=== PATIENT | male | born 1975 | race Caucasian/White ===

== ENCOUNTER 2019-07-07 07:43 | Inpatient (IN) | payer OTHER ==
[2019-07-07] MEDS ORDERED: SODIUM CHLORIDE 0.9% 500 ML 500 ML IV STA (07:49)
[2019-07-07] MEDS ORDERED: ONDANSETRON 4 MG/2 ML VIAL IVP STA (07:49)
[2019-07-07] MEDS ORDERED: SODIUM CHLORIDE 0.9% 1,000 ML IV STA (07:59)
--- NOTE | 2019-07-07 08:00 | ED ---
General Adult HPI - General Chief complaint: Abdominal Pain Stated complaint: Constipated, Abd Pain Time Seen by Provider: 07/07/19 07:49 Source: patient Mode of arrival: ambulatory - History of Present Illness Initial comments: Dictation was produced using [employer] dictation software. please excuse any grammatical, word or spelling errors. Chief Complaint: 43-year-old male presents to abdominal pain. History of Present Illness: A 43-year-old male. He hasa past medical history. States that he's been having abdominal pain for the last 3 days. Patient states that one week ago they returned back from [place]. Patient initially thought that his symptoms were secondary to constipation. He went and got joke-fjk-[id number] stool softeners. He states his symptoms improved slightly however still symptomatic. He does have constitutional symptoms at home. He localizes most of his pain to the periumbilical region. Sometimes worse in the right lower quadrant. He does report that sometimes his symptoms radiates to his rectum.. Patient has been having nausea however no vomiting. No diarrhea. Patient states that he is afraid to eat because of his pain. He has no history of abdominal surgery. The ROS documented in this emergency department record has been reviewed and confirmed by me. Those systems with pertinent positive or negative responses have been documented in the HPI. All other systems are other negative and/or noncontributory. PHYSICAL EXAM: General Impression: Alert and oriented x3, not in acute distress HEENT: Normocephalic atraumatic, extra-ocular movements intact, pupils equal and reactive to light bilaterally, mucous membranes moist. Cardiovascular: Heart regular rate and rhythm, S1&S2 audible, no murmurs, rubs or gallops Chest: Lungs clear to auscultation bilaterally, no rhonchi, no wheeze, no rales Abdomen: Tenderness to palpation over the suprapubic area and slightly worse in the right lower quadrant. Musculoskeletal: Pulses present and equal in all extremities, no peripheral edema Motor: no focal deficits noted Neurological: CN II-XII grossly intact, no focal motor or sensory deficits noted Skin: Intact with no visualized rashes Psych: Normal affect and mood ED course: 43-year-old male presents with chief complaint of abdominal pain. Vital signs upon arrival shows heart rate of 103, respiratory signs within acceptable limits. Laboratory evaluation obtained. Leukocytosis of 18.3, metabolic panel shows no acute findings. Computed tomography scan of the abdomen and pelvis shows medic al perforations with, located acute diverticulitis. Patient started on Zosyn. Patient be admitted. Discussed patient case with Dr. Menchaca is willing to accept patients care. Patient started on maintenance IV fluids. - Related Data Allergies Allergy/AdvReac Type Severity Reaction Status Date / Time No Known Allergies Allergy Verified 07/07/19 07:47 Review of Systems ROS Statement: Those systems with pertinent positive or pertinent negative responses have been documented in the HPI. ROS Other: All systems not noted in ROS Statement are negative. Past Medical History Past Medical History: No Reported History History of Any Multi-Drug Resistant Organisms: None Reported Past Surgical History: Orthopedic Surgery Past Psychological History: No Psychological Hx Reported Smoking Status: Never smoker Past Alcohol Use History: Occasional Past Drug Use History: None Reported Course Vital Signs 07/07/19 07:44 Temperature 99.7 F H Pulse Rate 103 H Respiratory 18 Rate Blood Pressure 140/82 O2 Sat by Pulse 97 Oximetry Medical Decision Making - Lab Data Result diagrams: 07/07/19 08:05 07/07/19 08:05 Lab Results 07/07/19 07/07/19 Range/Units 08:05 08:05 WBC 18.3 H (3.8-10.6) k/uL RBC 5.17 (4.30-5.90) m/uL Hgb 15.1 (13.0-17.5) gm/dL Hct 44.5 (39.0-53.0) % MCV 86.2 (80.0-100.0) fL MCH 29.2 (25.0-35.0) pg MCHC 33.9 (31.0-37.0) g/dL RDW 12.5 (11.5-15.5) % Plt Count 280 (150-450) k/uL Neutrophils % 88 % Lymphocytes % 6 % Monocytes % 5 % Eosinophils % 1 % Basophils % 0 % Neutrophils # 16.0 H (1.3-7.7) k/uL Lymphocytes # 1.1 (1.0-4.8) k/uL Monocytes # 0.9 (0-1.0) k/uL Eosinophils # 0.1 (0-0.7) k/uL Basophils # 0.0 (0-0.2) k/uL Sodium 137 (137-145) mmol/L Potassium 4.0 (3.5-5.1) mmol/L Chloride 105 (98-107) mmol/L Carbon Dioxide 21 L (22-30) mmol/L Anion Gap 11 mmol/L BUN 14 (9-20) mg/dL Creatinine 1.07 (0.66-1.25) mg/dL Est GFR (CKD-EPI)AfAm >90 (>60 ml/min/1.73 sqM) Est GFR (CKD-EPI)NonAf 85 (>60 ml/min/1.73 sqM) Glucose 125 H (74-99) mg/dL Calcium 9.3 (8.4-10.2) mg/dL Total Bilirubin 1.6 H (0.2-1.3) mg/dL AST 25 (17-59) U/L ALT 33 (21-72) U/L Alkaline Phosphatase 69 (38-126) U/L Total Protein 7.6 (6.3-8.2) g/dL Albumin 4.5 (3.5-5.0) g/dL Lipase 75 (23-300) U/L Disposition Clinical Impression: Diverticulitis Disposition: ADMITTED IP TO THIS [facility] Condition: Fair Referrals: Parker Kruse MD [Primary Care Provider] - 1-2 days Decision Time: 09:11
[2019-07-07 08:24] LABS: ALT 33 U/L (21-72); AST 25 U/L (17-59); African American GFR (CKD) >90 (>60 ml/min/1.73 sqM); Albumin 4.5 g/dL (3.5-5.0); Alkaline Phosphatase 69 U/L (38-126); Anion Gap 11 mmol/L; Blood Urea Nitrogen 14 mg/dL (9-20); Calcium 9.3 mg/dL (8.4-10.2); Carbon Dioxide 21 mmol/L (22-30); Chloride 105 mmol/L (98-107); Glucose 125 mg/dL (74-99); Non-African American GFR(CKD) 85 (>60 ml/min/1.73 sqM); Sodium 137 mmol/L (137-145); Total Bilirubin 1.6 mg/dL (0.2-1.3); Total Protein 7.6 g/dL (6.3-8.2)
[2019-07-07 08:25] LABS: Basophils % (A) 0 %; Eosinophils # (A) 0.1 k/uL (0-0.7); Eosinophils % (A) 1 %; HCT 44.5 % (39.0-53.0); HGB 15.1 gm/dL (13.0-17.5); Lymphocytes # (A) 1.1 k/uL (1.0-4.8); Lymphocytes % (A) 6 %; MCH 29.2 pg (25.0-35.0); MCHC 33.9 g/dL (31.0-37.0); MCV 86.2 fL (80.0-100.0); Mean Platelet Volume 6.1; Monocytes # (A) 0.9 k/uL (0-1.0); Monocytes % (A) 5 %; Neutrophils % (A) 88 %; Platelet Count 280 k/uL (150-450); RBC 5.17 m/uL (4.30-5.90); RDW 12.5 % (11.5-15.5); WBC 18.3 k/uL (3.8-10.6)
--- NOTE | 2019-07-07 08:56 | CT ---
EXAMINATION TYPE: CT abdomen pelvis w con DATE OF EXAM: 07/07/2019 COMPARISON: NONE HISTORY: 43 year-old male abdominal pain, Pelvic pain. TECHNIQUE: Contiguous axial scanning of the abdomen and pelvis following administration of 100 ml Iso rocky 300 IV contrast. Delayed images through the kidneys and coronal/sagittal reconstructions perform ed. CT DLP: 2144.3 mGycm Automated exposure control for dose reduction was used. FINDINGS: Heart normal size without pericardial effusion. Lung bases clear without pleural effusion. Liver mildly enlarged at 19.5 cm. No focal lesion or biliary ductal dilatation. Portal venous system is patent. Gallbladder distended upper limits of normal at 4.0 cm. No surrounding inflammation. Adrenal glands, left kidney, and spleen appear within normal limits. Small 1.4 cm lower pole right re nal cyst. Subtle focal hypodensity within the pancreatic head region, axial image 30 and coronal image 44 does not clearly persist on delayed kidney images. Precautionary follow up is recommended to reassess this region. No dilated small bowel. Normal appendix. Mild stool burden. Mid to distal sigmoid diverticulosis. The re is moderate circumferential wall thickening with moderate to severe surrounding inflammatory fat s tranding and mild pelvic free fluid. Small foci of extraluminal air are present adjacent to the site of greatest inflammation along the mid sigmoid, refer to coronal image 57 and axial image 72. No well -defined fluid collection is identified. No mesenteric or retroperitoneal lymphadenopathy. Circumferential bladder wall thickening. No pelvic lymphadenopathy. Bones: Mild degenerative changes of both hips. 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 Mild degenerative disc disease L4-L 5 and L5-S1. Mild facet arthropathy lower lumbar spine. IMPRESSION: 1. ACUTE SIGMOID DIVERTICULITIS WITH MODERATE TO SEVERE INFLAMMATION. THIS IS COMPLICATED BY A LOCALI ZED PERFORATION WITH ADJACENT SMALL FOCI OF EXTRALUMINAL AIR. NO ABSCESS FORMATION. MILD PELVIC FREE FLUID. 2. SUBTLE HYPODENSITY WITHIN THE PANCREATIC HEAD REGION MAY BE VOLUME AVERAGING EFFECTS. THIS DOES NO T CLEARLY PERSIST ON THE DELAYED KIDNEY IMAGES. PROGRESSION OR THREE-MONTH FOLLOW-UP CONTRAST ENHANCE D CT IS RECOMMENDED TO EXCLUDE A SUBTLE DEVELOPING SOLID PANCREATIC HEAD MASS. 3. CIRCUMFERENTIAL BLADDER WALL THICKENING COULD BE REACTIVE INFLAMMATION OR COULD REPRESENT A CONCUR RENT CYSTITIS.
[2019-07-07] MEDS ORDERED: PIPERACILLIN-TAZOBACTAM 3.375 GM in SODIUM CHLORIDE 0.9% 100 ML IVPB STA (09:03)
[2019-07-07] MEDS ORDERED: NALOXONE 0.4 MG/ML 1 ML VIAL IV PRN (09:08)
[2019-07-07] MEDS ORDERED: ONDANSETRON 4 MG/2 ML VIAL IVP PRN (09:08)
[2019-07-07] MEDS: SODIUM CHLORIDE 0.9% 1,000 ML IV SCH ×4 (09:45→21:02)
[2019-07-07] MEDS: MORPHINE SULFATE 2 MG/ML SYRINGE IV PRN ×2 (12:02→16:49)
[2019-07-07] MEDS: ACETAMINOPHEN TAB 325 MG TAB PO PRN ×2 (12:59→18:24)
[2019-07-07] MEDS ORDERED: KETOROLAC 30 MG/ML 1 ML VIAL IVP PRN (14:35)
--- NOTE | 2019-07-07 14:37 | P.GSHP ---
<Ginger Jc A - Last Filed: 07/07/19 14:35> History of Present Illness H&P Date: 07/07/19 Chief Complaint: Abdominal pain CHIEF COMPLAINT: Abdominal pain HISTORY OF PRESENT ILLNESS: 43-year-old male who presented to the emergency room with a chief complaint of abdominal pain. Patient reports he began having generalized abdominal pain on Thursday. He thought he may have been constipated. He reports taking [id number] stool softeners and laxatives since Thursday. He reports having daily bowel movements but states they have been significantly smaller than normal and he thinks there is some mucus in his stools. He reports feeling feverish at home over the last couple days. Reports nausea but denies diarrhea. He denies previous history of diverticulitis. Denies previous colonoscopy. Denies family history of diverticulitis. PAST MEDICAL HISTORY: See list. PAST SURGICAL HISTORY: See list. MEDICATIONS: See list. ALLERGIES: See list. SOCIAL HISTORY: No illicit drug use. REVIEW OF SYSTEMS: CONSTITUTIONAL: Reports feeling feverish at home. HEENT: Denies blurred vision, vision changes, or eye pain. Denies hemoptysis ENDOCRINE: Denies heat or cold intolerance. CARDIOVASCULAR: Denies chest pain or pressure. RESPIRATORY: No shortness of breath. GASTROINTESTINAL: See HPI for pertinent findings NEURO: Denies history of seizures. PSYCH: No depression or suicidal ideation HEMATOLOGIC: Denies bleeding disorders. LYMPHATIC: The patient denies any lumps and bumps around the neck. GENITOURINARY: Denies any blood in urine or increased urinary frequency. MUSCULOSKELETAL: Denies myalgias. Denies joint swelling. Denies decreased range of motion beyond patients baseline. SKIN: Denies pruitis. Denies rash. PHYSICAL EXAM: VITAL SIGNS: Reviewed GENERAL: Well-developed in no acute distress. HEENT: No sclera icterus. Extraocular movements grossly intact. Moist buccal mucosa. Head is atraumatic, normocephalic. Hears conversational speech. No nasal drainage. NECK: Supple without lymphadenopathy. CHEST: Non-labored respirations and equal bilateral excursions. CARDIOVASCULAR: Regular rate with regular rhythm. Palpable 2+ radial pulses. ABDOMEN: Soft. Nondistended. Tenderness upon palpation of left lower quadrant. No peritoneal signs. MUSCULOSKELETAL: No clubbing, cyanosis or edema. NEUROLOGIC: No focal or lateralizing signs. Cranial nerves II through XII grossly intact. PSYCH: Appropriate affect. Alert and oriented to person, place and time. SKIN: Well perfused. Good skin turgor. LABORATORY DATA: WBC 18.3. Hemoglobin 15.1. Platelet count 280. Sodium 137. Potassium 4.0. B UN 14. Creatinine 1.07. Bilirubin 1.6. AST 25. ALT 33. IMAGING: CT abdomen and pelvis: Acute sigmoid diverticulitis with moderate to severe inflammation. Complicated by a localized perforation with adjacent small foci of extraluminal air. No abscess formation. Mild pelvic free fluid. ASSESSMENT: 1. Abdominal pain 2. Acute sigmoid diverticulitis with localized perforation PLAN: 1. Bowel rest. Nothing by mouth except for ice chips. Continue IV fluids 2. Monitor WBC. Repeat in AM. Continue IV Zosyn 3. No immediate surgical intervention recommended at this time. Nurse practitioner note has been reviewed by physician. Signing provider agrees with the documented findings, assessment, and plan of care. Past Medical History Past Medical History: No Reported History History of Any Multi-Drug Resistant Organisms: None Reported Past Surgical History: Ear Surgery, Orthopedic Surgery Additional Past Surgical History / Comment(s): Bilateral myringotomy/tubes then L ear had titanium tube placed, L ankle ORIF Past Anesthesia/Blood Transfusion Reactions: No Reported Reaction Smoking Status: Former smoker - Past Family History Father Family Medical History: Congestive Heart Failure (CHF), Coronary Artery Disease (CAD), CVA/TIA, Diabetes Mellitus Additional Family Medical History / Comment(s): TIAs, coronary stents. Father from CHF at the age of 62 yrs. Mother Family Medical History: Renal Disease Additional Family Medical History / Comment(s): Mother has kidney problems and depression. Medications and Allergies Home Medications Medication Instructions Recorded Confirmed Type diphenhydrAMINE [Benadryl] 50 mg PO Q4H PRN 07/07/19 07/07/19 History Allergies Allergy/AdvReac Type Severity Reaction Status Date / Time No Known Allergies Allergy Verified 07/07/19 09:22 Surgical - Exam Vital Signs Temp Pulse Resp BP Pulse Ox 99.7 F H 103 H 18 140/82 97 07/07/19 07:44 07/07/19 07:44 07/07/19 07:44 07/07/19 07:44 07/07/19 07:44 Results - Labs 07/07/19 08:05 07/07/19 08:05 Abnormal Lab Results - Last 24 Hours (Table) 07/07/19 07/07/19 Range/Units 08:05 08:05 WBC 18.3 H (3.8-10.6) k/uL Neutrophils # 16.0 H (1.3-7.7) k/uL Carbon Dioxide 21 L (22-30) mmol/L Glucose 125 H (74-99) mg/dL Total Bilirubin 1.6 H (0.2-1.3) mg/dL Diabetes panel 07/07/19 Range/Units 08:05 Sodium 137 (137-145) mmol/L Potassium 4.0 (3.5-5.1) mmol/L Chloride 105 (98-107) mmol/L Carbon Dioxide 21 L (22-30) mmol/L BUN 14 (9-20) mg/dL Creatinine 1.07 (0.66-1.25) mg/dL Glucose 125 H (74-99) mg/dL Calcium 9.3 (8.4-10.2) mg/dL AST 25 (17-59) U/L ALT 33 (21-72) U/L Alkaline Phosphatase 69 (38-126) U/L Total Protein 7.6 (6.3-8.2) g/dL Albumin 4.5 (3.5-5.0) g/dL Calcium panel 07/07/19 Range/Units 08:05 Calcium 9.3 (8.4-10.2) mg/dL Albumin 4.5 (3.5-5.0) g/dL Pituitary panel 07/07/19 Range/Units 08:05 Sodium 137 (137-145) mmol/L Potassium 4.0 (3.5-5.1) mmol/L Chloride 105 (98-107) mmol/L Carbon Dioxide 21 L (22-30) mmol/L BUN 14 (9-20) mg/dL Creatinine 1.07 (0.66-1.25) mg/dL Glucose 125 H (74-99) mg/dL Calcium 9.3 (8.4-10.2) mg/dL Adrenal panel 07/07/19 Range/Units 08:05 Sodium 137 (137-145) mmol/L Potassium 4.0 (3.5-5.1) mmol/L Chloride 105 (98-107) mmol/L Carbon Dioxide 21 L (22-30) mmol/L BUN 14 (9-20) mg/dL Creatinine 1.07 (0.66-1.25) mg/dL Glucose 125 H (74-99) mg/dL Calcium 9.3 (8.4-10.2) mg/dL Total Bilirubin 1.6 H (0.2-1.3) mg/dL AST 25 (17-59) U/L ALT 33 (21-72) U/L Alkaline Phosphatase 69 (38-126) U/L Total Protein 7.6 (6.3-8.2) g/dL Albumin 4.5 (3.5-5.0) g/dL <Rach Soto - Last Filed: 07/07/19 21:02> History of Present Illness Patient seen and evaluated. CT of the abdomen and pelvis independently reviewed without free air. A localized perforation identified at the sigmoid colon. On exam, tenderness suprapubic. Patient reports that his abdominal pain has improved since yesterday. Recommend bowel rest. For fevers, add Toradol, scheduled Tylenol, Flagyl. Will reassess for start of diet tomorrow Surgical - Exam Vital Signs Temp Pulse Resp BP Pulse Ox 99.7 F H 103 H 18 140/82 97 07/07/19 07:44 07/07/19 07:44 07/07/19 07:44 07/07/19 07:44 07/07/19 07:44 Results - Labs 07/07/19 08:05 07/07/19 08:05 Abnormal Lab Results - Last 24 Hours (Table) 07/07/19 07/07/19 Range/Units 08:05 08:05 WBC 18.3 H (3.8-10.6) k/uL Neutrophils # 16.0 H (1.3-7.7) k/uL Carbon Dioxide 21 L (22-30) mmol/L Glucose 125 H (74-99) mg/dL Total Bilirubin 1.6 H (0.2-1.3) mg/dL Diabetes panel 07/07/19 Range/Units 08:05 Sodium 137 (137-145) mmol/L Potassium 4.0 (3.5-5.1) mmol/L Chloride 105 (98-107) mmol/L Carbon Dioxide 21 L (22-30) mmol/L BUN 14 (9-20) mg/dL Creatinine 1.07 (0.66-1.25) mg/dL Glucose 125 H (74-99) mg/dL Calcium 9.3 (8.4-10.2) mg/dL AST 25 (17-59) U/L ALT 33 (21-72) U/L Alkaline Phosphatase 69 (38-126) U/L Total Protein 7.6 (6.3-8.2) g/dL Albumin 4.5 (3.5-5.0) g/dL Calcium panel 07/07/19 Range/Units 08:05 Calcium 9.3 (8.4-10.2) mg/dL Albumin 4.5 (3.5-5.0) g/dL Pituitary panel 07/07/19 Range/Units 08:05 Sodium 137 (137-145) mmol/L Potassium 4.0 (3.5-5.1) mmol/L Chloride 105 (98-107) mmol/L Carbon Dioxide 21 L (22-30) mmol/L BUN 14 (9-20) mg/dL Creatinine 1.07 (0.66-1.25) mg/dL Glucose 125 H (74-99) mg/dL Calcium 9.3 (8.4-10.2) mg/dL Adrenal panel 07/07/19 Range/Units 08:05 Sodium 137 (137-145) mmol/L Potassium 4.0 (3.5-5.1) mmol/L Chloride 105 (98-107) mmol/L Carbon Dioxide 21 L (22-30) mmol/L BUN 14 (9-20) mg/dL Creatinine 1.07 (0.66-1.25) mg/dL Glucose 125 H (74-99) mg/dL Calcium 9.3 (8.4-10.2) mg/dL Total Bilirubin 1.6 H (0.2-1.3) mg/dL AST 25 (17-59) U/L ALT 33 (21-72) U/L Alkaline Phosphatase 69 (38-126) U/L Total Protein 7.6 (6.3-8.2) g/dL Albumin 4.5 (3.5-5.0) g/dL
[2019-07-07] MEDS: PIPERACILLIN-TAZOBACTAM 3.375 GM in SODIUM CHLORIDE 0.9% 100 ML IVPB SCH (15:17)
[2019-07-07] MEDS: HEPARIN SODIUM,PORCINE 5,000 UNIT/ML 1 ML VIAL SQ SCH (20:03)
[2019-07-07] MEDS: KETOROLAC 30 MG/ML 1 ML VIAL IVP SCH (21:19)
[2019-07-07] MEDS: metroNIDAZOLE-NS PMX 500 MG in SALINE 1 100ML.BAG IVPB SCH (23:24)
[2019-07-08] MEDS ORDERED: KETOROLAC 30 MG/ML 1 ML VIAL IVP SCH
[2019-07-08] MEDS: ACETAMINOPHEN IV (For NPO) 1,000 MG in EMPTY BAG 1 BAG IVPB SCH ×4 (01:01→17:04)
[2019-07-08] MEDS: PIPERACILLIN-TAZOBACTAM 3.375 GM in SODIUM CHLORIDE 0.9% 100 ML IVPB SCH ×4 (01:02→23:48)
[2019-07-08] MEDS: KETOROLAC 30 MG/ML 1 ML VIAL IVP SCH ×4 (02:59→21:35)
[2019-07-08] MEDS: SODIUM CHLORIDE 0.9% 1,000 ML IV SCH ×3 (02:59→19:10)
[2019-07-08] MEDS: metroNIDAZOLE-NS PMX 500 MG in SALINE 1 100ML.BAG IVPB SCH ×4 (06:14→23:47)
[2019-07-08 06:51] LABS: Basophils % (A) 0 %; Eosinophils # (A) 0.1 k/uL (0-0.7); Eosinophils % (A) 1 %; HCT 37.3 % (39.0-53.0); HGB 12.5 gm/dL (13.0-17.5); Lymphocytes # (A) 1.3 k/uL (1.0-4.8); Lymphocytes % (A) 10 %; MCH 29.1 pg (25.0-35.0); MCHC 33.6 g/dL (31.0-37.0); MCV 86.7 fL (80.0-100.0); Mean Platelet Volume 6.3; Monocytes # (A) 0.6 k/uL (0-1.0); Monocytes % (A) 5 %; Neutrophils # (A) 10.8 k/uL (1.3-7.7); Neutrophils % (A) 83 %; Platelet Count 215 k/uL (150-450); RBC 4.31 m/uL (4.30-5.90); RDW 12.6 % (11.5-15.5)
[2019-07-08] MEDS: PANTOPRAZOLE 40 MG/10 ML VIAL IVP SCH (08:10)
[2019-07-08] MEDS: HEPARIN SODIUM,PORCINE 5,000 UNIT/ML 1 ML VIAL SQ SCH ×2 (08:10→21:35)
--- NOTE | 2019-07-08 11:44 | P.PN ---
<Ginger Jc A - Last Filed: 07/08/19 11:39> Subjective Progress Note Date: 07/08/19 CHIEF COMPLAINT: Abdominal pain HISTORY OF PRESENT ILLNESS: Patient examined at the bedside. He reports improvement in his abdominal pain. Tolerating ice chips and popsicles. Denies nausea or vomiting. Reports passing flatus and having a small bowel movement this morning. PHYSICAL EXAM: VITAL SIGNS: Reviewed GENERAL: Well-developed in no acute distress. HEENT: No sclera icterus. Extraocular movements grossly intact. Moist buccal mucosa. Head is atraumatic, normocephalic. Hears conversational speech. No nasal drainage. NECK: Supple without lymphadenopathy. CHEST: Non-labored respirations and equal bilateral excursions. CARDIOVASCULAR: Regular rate with regular rhythm. Palpable 2+ radial pulses. ABDOMEN: Soft. Nondistended. Minimal tenderness upon palpation of left lower quadrant. No peritoneal signs. MUSCULOSKELETAL: No clubbing, cyanosis or edema. NEUROLOGIC: No focal or lateralizing signs. Cranial nerves II through XII grossly intact. PSYCH: Appropriate affect. Alert and oriented to person, place and time. SKIN: Well perfused. Good skin turgor. ASSESSMENT: 1. Abdominal pain 2. Acute sigmoid diverticulitis with localized perforation PLAN: 1. Begin clear liquid diet 2. Monitor WBC. Repeat in AM. Continue IV Zosyn 3. No immediate surgical intervention recommended at this time. Nurse practitioner note has been reviewed by physician. Signing provider agrees with the documented findings, assessment, and plan of care. Objective - Vital Signs Vital signs: Vital Signs Temp 98.9 F 07/08/19 04:45 Pulse 82 07/08/19 04:45 Resp 16 07/08/19 04:45 BP 107/69 07/08/19 04:45 Pulse Ox 96 07/08/19 04:45 Intake & Output 07/07/19 07/08/19 07/08/19 18:59 06:59 18:59 Intake Total 1060 Balance 1060 Weight 124.738 kg Intake: IV 1060 Piperacillin-Tazobactam 3 100 .375 gm In Sodium Chloride 0.9% 100 ml @ 25 mls/hr IVPB Q8HR ERI Rx# :[id number] Sodium Chloride 0.9% 1, 960 000 ml @ 120 mls/hr IV . Q8H20M ERI Rx#:[id number] Other: # Voids 1 3 - Labs CBC & Chem 7: 07/08/19 06:18 07/07/19 08:05 Labs: Abnormal Lab Results - Last 24 Hours (Table) 07/08/19 Range/Units 06:18 WBC 13.0 H (3.8-10.6) k/uL Hgb 12.5 L (13.0-17.5) gm/dL Hct 37.3 L (39.0-53.0) % Neutrophils # 10.8 H (1.3-7.7) k/uL Microbiology - Last 24 Hours (Table) 07/07/19 09:25 Blood Culture - Preliminary Blood No Growth after 24 hours <Rach Soto - Last Filed: 07/11/19 15:10> Subjective As above. We'll need at least 2 weeks course of oral antibiotics pending improvement of white blood cell count Objective - Vital Signs Vital signs: Vital Signs Temp 99.1 F 07/11/19 07:00 Pulse 83 07/11/19 07:00 Resp 16 07/11/19 07:00 BP 134/73 07/11/19 07:00 Pulse Ox 97 07/11/19 07:00 Intake & Output 07/10/19 07/11/19 07/11/19 18:59 06:59 18:59 Intake Total 1160 920 Balance 1160 920 Intake: IV 200 920 Piperacillin-Tazobactam 3 100 100 .375 gm In Sodium Chloride 0.9% 100 ml @ 25 mls/hr IVPB Q8HR ERI Rx# :[id number] Sodium Chloride 0.9% 1, 720 000 ml @ 120 mls/hr IV . Q8H20M ERI Rx#:[id number] metroNIDAZOLE-NS PMX 500 100 100 mg In Saline 1 100ml.bag @ 100 mls/hr IVPB Q6HR ERI Rx#:[id number] Intake, IV Titration 960 Amount Sodium Chloride 0.9% 1, 960 000 ml @ 120 mls/hr IV . Q8H20M ERI Rx#:[id number] Other: Voiding Method Toilet # Voids 4 2 # Bowel Movements 4 1 - Labs CBC & Chem 7: 07/10/19 06:32 07/07/19 08:05 Labs: Microbiology - Last 24 Hours (Table) 07/07/19 09:25 Blood Culture - Preliminary Blood No Growth after 96 hours 07/09/19 23:38 Blood Culture - Preliminary Blood No Growth after 24 hours
[2019-07-09] MEDS: KETOROLAC 30 MG/ML 1 ML VIAL IVP SCH ×4 (03:10→20:01)
[2019-07-09] MEDS: SODIUM CHLORIDE 0.9% 1,000 ML IV SCH ×3 (03:11→20:04)
[2019-07-09] MEDS: metroNIDAZOLE-NS PMX 500 MG in SALINE 1 100ML.BAG IVPB SCH ×4 (05:31→22:55)
[2019-07-09 06:32] LABS: Basophils % (A) 0 %; Eosinophils # (A) 0.2 k/uL (0-0.7); Eosinophils % (A) 2 %; HCT 36.5 % (39.0-53.0); HGB 11.8 gm/dL (13.0-17.5); Lymphocytes # (A) 1.2 k/uL (1.0-4.8); Lymphocytes % (A) 13 %; MCH 28.3 pg (25.0-35.0); MCHC 32.2 g/dL (31.0-37.0); Mean Platelet Volume 7.4; Monocytes # (A) 0.6 k/uL (0-1.0); Monocytes % (A) 6 %; Neutrophils # (A) 6.8 k/uL (1.3-7.7); Neutrophils % (A) 77 %; Platelet Count 213 k/uL (150-450); RBC 4.15 m/uL (4.30-5.90); RDW 12.6 % (11.5-15.5); WBC 8.9 k/uL (3.8-10.6)
[2019-07-09] MEDS: PANTOPRAZOLE 40 MG/10 ML VIAL IVP SCH (07:15)
[2019-07-09] MEDS: HEPARIN SODIUM,PORCINE 5,000 UNIT/ML 1 ML VIAL SQ SCH ×2 (07:15→20:02)
[2019-07-09] MEDS: PIPERACILLIN-TAZOBACTAM 3.375 GM in SODIUM CHLORIDE 0.9% 100 ML IVPB SCH ×3 (07:15→23:28)
--- NOTE | 2019-07-09 16:15 | P.CONS ---
History of Present Illness - Reason for Consult Consult date: 07/09/19 Abdominal pain - History of Present Illness This is a 43-year-old male presented to the emergency room with a chief complai nt of abdominal pain. Patient reports he began having generalized abdominal pain since Thursday after eating his Snickers bar. He states he has had an episode like this about one year ago after eating popcorn. He has not had a colonoscopy. He thought he may have been constipated. He reports taking ztha-zjw-ktyswxb stool softeners and laxatives since Thursday. He reports having daily bowel movements but states they have been significantly smaller than normal and he thinks there is some mucus in his stools. He reports feeling feverish at home over the last couple days. Reports nausea but denies diarrhea. He denies previous history of diverticulitis. Denies previous colonoscopy. Denies family history of diverticulitis. CAT scan of the abdomen and pelvis revealed acute sigmoid diverticulitis with moderate to severe inflammation. Complicated by localized perforation with adjacent small foci of extraluminal air. No abscess formation. Mild pelvic free fluid. Patient was admitted under the care of and family have requested us to follow for medical management. The patient was initially on bowel rest but has been started on clear liquid diet and tolerating. Review of Systems Constitutional: Reports chills, Reports fatigue, Reports fever, Reports poor appetite, Denies anorexia, Denies weakness, Denies weight loss Eyes: denies blurred vision, denies pain Ears, nose, mouth and throat: Denies headache, Denies nasal congestion, Denies nasal discharge, Denies sore throat Cardiovascular: Denies chest pain, Denies decreased exercise tolerance, Denies dyspnea on exertion, Denies edema, Denies shortness of breath, Denies syncope Respiratory: Denies cough, Denies cough with sputum, Denies dyspnea Gastrointestinal: Reports abdominal pain, Reports constipation, Reports loss of appetite, Denies diarrhea, Denies nausea, Denies vomiting Genitourinary: Denies dysuria, Denies urinary retention Musculoskeletal: Denies muscle weakness, Denies myalgias Integumentary: Denies pruritus, Denies rash, Denies wounds Neurological: Denies change in mentation, Denies change in speech, Denies numbness, Denies weakness Psychiatric: Denies anxiety, Denies depression Endocrine: Denies fatigue, Denies weight change Past Medical History Past Medical History: No Reported History Additional Past Medical History / Comment(s): Diverticulitis History of Any Multi-Drug Resistant Organisms: None Reported Past Surgical History: Ear Surgery, Orthopedic Surgery Additional Past Surgical History / Comment(s): Bilateral myringotomy/tubes then L ear had titanium tube placed, L ankle ORIF Past Anesthesia/Blood Transfusion Reactions: No Reported Reaction Smoking Status: Former smoker Additional Past Alcohol Use History / Comment(s): He is not active smoker. He drinks alcohol occasionally. Lives at home with his and 3 children. He works at [employer]. - Past Family History Father Family Medical History: Congestive Heart Failure (CHF), Coronary Artery Disease (CAD), CVA/TIA, Diabetes Mellitus Additional Family Medical History / Comment(s): TIAs, coronary stents. Father from CHF at the age of 62 yrs. Mother Family Medical History: Renal Disease Additional Family Medical History / Comment(s): Mother has kidney problems and depression. Brother(s) Additional Family Medical History / Comment(s): Patient has 1 brother and 1 sister with no major medical problems. Patient has 3 children with no major medical problems. Medications and Allergies Home Medications Medication Instructions Recorded Confirmed Type diphenhydrAMINE [Benadryl] 50 mg PO Q4H PRN 07/07/19 07/07/19 History Ciprofloxacin HCl [Cipro] 500 mg PO Q12HR #28 tablet 07/08/19 Rx metroNIDAZOLE [Flagyl] 500 mg PO TID #42 tab 07/08/19 Rx Allergies Allergy/AdvReac Type Severity Reaction Status Date / Time No Known Allergies Allergy Verified 07/07/19 09:22 Physical Exam Vitals: Vital Signs Temp Pulse Resp BP Pulse Ox 07/09/19 04:34 98.4 F 70 14 120/81 95 07/08/19 21:23 98.1 F 73 16 120/77 98 07/08/19 13:05 97.4 F L 79 16 127/83 99 Intake and Output 07/08/19 07/09/19 07/09/19 22:59 06:59 14:59 Intake Total 540 Output Total 1 Balance 540 -1 Intake: Oral 540 Output: Urine 1 Other: Voiding Method Toilet # Voids 1 1 Gen: This is an obese 43-year-old male. He is resting bed appears to be in no acute distress. HEENT: Head is atraumatic, normocephalic. Pupils equal, round. Sclerae is anicteric. NECK: Supple. No JVD. No lymphadenopathy. No thyromegaly. LUNGS: Clear to auscultation. No wheezes or rhonchi. No intercostal retracti ons. HEART: Regular rate and rhythm. No murmur. ABDOMEN: Soft. Bowel sounds are present. No masses. Mild left lower quadrant tenderness. EXTREMITIES: No pedal edema. No calf tenderness. NEUROLOGICAL: Patient is awake, alert and oriented x3. Cranial nerves 2 through 12 are grossly intact. Results CBC & Chem 7: 07/09/19 05:47 07/07/19 08:05 Labs: Abnormal Lab Results - Last 24 Hours (Table) 07/09/19 Range/Units 05:47 RBC 4.15 L (4.30-5.90) m/uL Hgb 11.8 L (13.0-17.5) gm/dL Hct 36.5 L (39.0-53.0) % Microbiology - Last 24 Hours (Table) 07/07/19 09:25 Blood Culture - Preliminary Blood No Growth after 48 hours Assessment and Plan Plan: 1. Acute sigmoid diverticulitis with localized perforation. Continue clear liq uid diet, IV Zosyn and Flagyl. Surgery does not have any plan for surgical intervention at this time. 2. Sepsis secondary to acute sigmoid diverticulitis with fevers and leukocytosis. Continue as in #1. 3. DVT prophylaxis. SCDs and RYAN hose. 4. GI prophylaxis. Protonix. Discharge plan: home Impression and plan of care have been directed as dictated by the signing physician. Ladi Loza nurse practitioner acting as scribe for signing physician.
[2019-07-09] MEDS: MORPHINE SULFATE 2 MG/ML SYRINGE IV PRN (17:58)
[2019-07-09] MEDS: ACETAMINOPHEN TAB 325 MG TAB PO PRN (23:28)
[2019-07-10] MEDS: KETOROLAC 30 MG/ML 1 ML VIAL IVP SCH ×4 (04:16→22:52)
[2019-07-10] MEDS: SODIUM CHLORIDE 0.9% 1,000 ML IV SCH ×3 (04:18→22:59)
[2019-07-10] MEDS: metroNIDAZOLE-NS PMX 500 MG in SALINE 1 100ML.BAG IVPB SCH ×3 (05:54→17:56)
[2019-07-10 07:04] LABS: Basophils % (A) 0 %; Eosinophils % (A) 1 %; HGB 11.8 gm/dL (13.0-17.5); Lymphocytes # (A) 0.8 k/uL (1.0-4.8); Lymphocytes % (A) 9 %; MCH 28.4 pg (25.0-35.0); MCHC 32.7 g/dL (31.0-37.0); MCV 86.7 fL (80.0-100.0); Mean Platelet Volume 7.2; Monocytes # (A) 0.4 k/uL (0-1.0); Monocytes % (A) 5 %; Neutrophils # (A) 7.5 k/uL (1.3-7.7); Neutrophils % (A) 84 %; Platelet Count 249 k/uL (150-450); RBC 4.16 m/uL (4.30-5.90); RDW 12.6 % (11.5-15.5); WBC 8.9 k/uL (3.8-10.6)
[2019-07-10] MEDS: HEPARIN SODIUM,PORCINE 5,000 UNIT/ML 1 ML VIAL SQ SCH ×2 (07:46→22:51)
[2019-07-10] MEDS: PIPERACILLIN-TAZOBACTAM 3.375 GM in SODIUM CHLORIDE 0.9% 100 ML IVPB SCH ×2 (07:46→15:43)
[2019-07-10] MEDS: PANTOPRAZOLE 40 MG/10 ML VIAL IVP SCH (07:47)
--- NOTE | 2019-07-10 11:45 | P.PN ---
Subjective Progress Note Date: 07/10/19 This is a 43-year-old male presented to the emergency room with a chief complaint of abdominal pain. Patient reports he began having generalized abdominal pain since Thursday after eating his Snickers bar. He states he has had an episode like this about one year ago after eating popcorn. He has not had a colonoscopy. He thought he may have been constipated. He reports taking qvst-lta-vruclkr stool softeners and laxatives since Thursday. He reports having daily bowel movements but states they have been significantly smaller than normal and he thinks there is some mucus in his stools. He reports feeling feverish at home over the last couple days. Reports nausea but denies diarrhea. He denies previous history of diverticulitis. Denies previous colonoscopy. Denies family history of diverticulitis. CAT scan of the abdomen and pelvis revealed acute sigmoid diverticulitis with moderate to severe inflammation. Complicated by localized perforation with adjacent small foci of extraluminal a ir. No abscess formation. Mild pelvic free fluid. Patient was admitted under the care of and family have requested us to follow for medical management. The patient was initially on bowel rest but has been started on clear liquid diet and tolerating. 07/10: Received a call last evening the patient developed fever 102.3, blood cultures were obtained. Patient states that last night he had an attack of abdominal pain around 5 PM and subsequently resolved. He did have a bowel move ment. He is on a clear liquid diet. He complains of generalized soreness to the abdomen today. WBC is 8.9, hemoglobin 11.8. Patient is continued on Flagyl and Zosyn. Review of Systems Constitutional: Reports chills, Reports fatigue, Reports fever, Reports poor appetite, Denies anorexia, Denies weakness, Denies weight loss Eyes: denies blurred vision, denies pain Ears, nose, mouth and throat: Denies headache, Denies nasal congestion, Denies nasal discharge, Denies sore throat Cardiovascular: Denies chest pain, Denies decreased exercise tolerance, Denies dyspnea on exertion, Denies edema, Denies shortness of breath, Denies syncope Respiratory: Denies cough, Denies cough with sputum, Denies dyspnea Gastrointestinal: Reports abdominal pain attack last evening, Reports constipation, Reports loss of appetite, Denies diarrhea, Denies nausea, Denies vomiting Genitourinary: Denies dysuria, Denies urinary retention Musculoskeletal: Denies muscle weakness, Denies myalgias Integumentary: Denies pruritus, Denies rash, Denies wounds Neurological: Denies change in mentation, Denies change in speech, Denies numbness, Denies weakness Psychiatric: Denies anxiety, Denies depression Endocrine: Denies fatigue, Denies weight change Objective - Vital Signs Vital signs: Vital Signs Temp 100.2 F H 07/10/19 05:24 Pulse 94 07/10/19 05:24 Resp 18 07/10/19 05:24 BP 115/71 07/10/19 05:24 Pulse Ox 95 07/10/19 05:24 Intake & Output 07/09/19 07/10/19 07/10/19 18:59 06:59 18:59 Output Total 30 Balance -30 Output: Stool 30 Other: Voiding Method Toilet Toilet # Voids 4 1 # Bowel Movements 4 1 - Exam Gen: This is an obese 43-year-old male. He is resting bed appears to be in no acute distress. HEENT: Head is atraumatic, normocephalic. Pupils equal, round. Sclerae is anicteric. NECK: Supple. No JVD. No lymphadenopathy. No thyromegaly. LUNGS: Clear to auscultation. No wheezes or rhonchi. No intercostal retractions. HEART: Regular rate and rhythm. No murmur. ABDOMEN: Soft. Bowel sounds are present. No masses. Mild generalized abdominal tenderness. EXTREMITIES: No pedal edema. No calf tenderness. Dorsalis pedis +2 bilaterally. NEUROLOGICAL: Patient is awake, alert and oriented x3. Cranial nerves 2 through 12 are grossly intact. - Labs CBC & Chem 7: 07/10/19 06:32 07/07/19 08:05 Labs: Abnormal Lab Results - Last 24 Hours (Table) 07/10/19 Range/Units 06:32 RBC 4.16 L (4.30-5.90) m/uL Hgb 11.8 L (13.0-17.5) gm/dL Hct 36.0 L (39.0-53.0) % Lymphocytes # 0.8 L (1.0-4.8) k/uL Microbiology - Last 24 Hours (Table) 07/07/19 09:25 Blood Culture - Preliminary Blood No Growth after 48 hours Assessment and Plan Plan: 1. Acute sigmoid diverticulitis with localized perforation. Continue clear liquid diet, IV Zosyn and Flagyl. Surgery does not have any plan for surgical intervention at this time. 2. Sepsis secondary to acute sigmoid diverticulitis with fevers and leukocytosis. Continue as in #1. Repeat blood cultures ordered during febrile episode. Initial blood culture obtained on July 07 showing no growth at 72 hours. 3. DVT prophylaxis. SCDs and RYAN hose. 4. GI prophylaxis. Protonix. Discharge plan: home Impression and plan of care have been directed as dictated by the signing physician. Ladi Loza nurse practitioner acting as scribe for signing physician.
[2019-07-11] MEDS: metroNIDAZOLE-NS PMX 500 MG in SALINE 1 100ML.BAG IVPB SCH ×3 (00:51→11:56)
[2019-07-11] MEDS: PIPERACILLIN-TAZOBACTAM 3.375 GM in SODIUM CHLORIDE 0.9% 100 ML IVPB SCH ×2 (00:51→08:01)
[2019-07-11] MEDS: KETOROLAC 30 MG/ML 1 ML VIAL IVP SCH ×2 (04:02→08:02)
[2019-07-11 05:04] VITALS: RESP 16
[2019-07-11] MEDS: SODIUM CHLORIDE 0.9% 1,000 ML IV SCH ×2 (05:13→13:18)
[2019-07-11] MEDS: HEPARIN SODIUM,PORCINE 5,000 UNIT/ML 1 ML VIAL SQ SCH (08:01)
[2019-07-11] MEDS: PANTOPRAZOLE 40 MG/10 ML VIAL IVP SCH (08:01)
[2019-07-11 08:14] VITALS: BP 134/73; PULSE 83; TEMP 99.1
--- NOTE | 2019-07-11 11:12 | P.DS ---
<Ginger Jc Doug - Last Filed: 07/11/19 11:09> Providers Expected date of discharge: 07/11/19 Hospital Course: 43-year-old male who presented to the emergency room with a chief complaint of abdominal pain. Patient reports he began having generalized abdominal pain on Thursday. He thought he may have been constipated. He reports taking zzic-zqu-atejvqd stool softeners and laxatives since Thursday. He reports having daily bowel movements but states they have been significantly smaller than normal and he thinks there is some mucus in his stools. He reports feeling feverish at home over the last couple days. Reports nausea but denies vomiting. He denies previous history of diverticulitis. Denies previous colonoscopy. Denies family history of diverticulitis. Patient was admitted to the hospital. He was made NPO. He received IV antibiotics. His WBC has been trending downward. The patients pain has resolved. He was started on a clear liquid diet and slowly advanced. Infectious disease consult was requested for antibiotic recommendations at discharge. He is stable for discharge home today. The patient was treated medically and did not require surgical intervention during his hospitalization. He is to remain on a full liquid/soft diet for 3 additional days. He is to follow up with Dr. Soto outpatient. Please see EMR for further hospital course details. ASSESSMENT: 1. Abdominal pain 2. Acute sigmoid diverticulitis with localized perforation Nurse practitioner note has been reviewed by physician. Signing provider agrees with the documented findings, assessment, and plan of care. Patient Condition at Discharge: Stable Plan - Discharge Summary Discharge Rx Participant: No New Discharge Prescriptions: New Ciprofloxacin HCl [Cipro] 500 mg PO Q12HR #28 tablet metroNIDAZOLE [Flagyl] 500 mg PO TID #42 tab No Action diphenhydrAMINE [Benadryl] 50 mg PO Q4H PRN PRN Reason: Itching Discharge Medication List diphenhydrAMINE [Benadryl] 50 mg PO Q4H PRN 07/07/19 [History] Ciprofloxacin HCl [Cipro] 500 mg PO Q12HR #28 tablet 07/08/19 [Rx] metroNIDAZOLE [Flagyl] 500 mg PO TID #42 tab 07/08/19 [Rx] Follow up Appointment(s)/Referral(s): Matt Foss MD [Medical Doctor] - 1 Week (office to call you with appt. time and date. please call the office to go over your insurance card.) Rach Soto MD [STAFF PHYSICIAN] - 07/19/19 11:40 am Patient Instructions/Handouts: Diverticulitis (DC), Diverticulitis Diet (DC), Full Liquid Diet (DC) Activity/Diet/Wound Care/Special Instructions: Continue full liquid/soft diet for 3 days after discharge Discharge Disposition: HOME SELF-CARE <Rach Soto - Last Filed: 07/11/19 15:11> Providers Date of admission: 07/07/19 09:08 Attending physician: Rach Soto Consults: 07/09/19 12:10 Consult Physician Routine Consulting Provider: Matt Foss Consult Reason/Comments: med management, family request Do you want consulting provider notified?: Yes 07/11/19 06:48 Consult Physician Routine Consulting Provider: Vickie Scales Consult Reason/Comments: Antibiotic management Do you want consulting provider notified?: Yes 07/11/19 08:20 Consult Physician Routine Consulting Provider: Vickie Scales Consult Reason/Comments: fevers Do you want consulting provider notified?: Yes Primary care physician: Pedro Kruse - Discharge Diagnosis(es) (1) Sepsis Status: Acute (2) Diverticulitis Status: Acute Hospital Course: Prior to patient discharge, infectious disease consultation was obtained for management of oral antibiotics.
--- NOTE | 2019-07-11 13:10 | P.PN ---
Subjective Progress Note Date: 07/11/19 This is a 43-year-old male presented to the emergency room with a chief complaint of abdominal pain. Patient reports he began having generalized abdominal pain since Thursday after eating his Snickers bar. He states he has had an episode like this about one year ago after eating popcorn. He has not had a colonoscopy. He thought he may have been constipated. He reports taking fsiw-keo-dwficto stool softeners and laxatives since Thursday. He reports having daily bowel movements but states they have been significantly smaller than normal and he thinks there is some mucus in his stools. He reports feeling feverish at home over the last couple days. Reports nausea but denies diarrhea. He denies previous history of diverticulitis. Denies previous colonoscopy. Denies family history of diverticulitis. CAT scan of the abdomen and pelvis revealed acute sigmoid diverticulitis with moderate to severe inflammation. Complicated by localized perforation with adjacent small foci of extraluminal a ir. No abscess formation. Mild pelvic free fluid. Patient was admitted under the care of and family have requested us to follow for medical management. The patient was initially on bowel rest but has been started on clear liquid diet and tolerating. 07/10: Received a call last evening the patient developed fever 102.3, blood cultures were obtained. Patient states that last night he had an attack of abdominal pain around 5 PM and subsequently resolved. He did have a bowel move ment. He is on a clear liquid diet. He complains of generalized soreness to the abdomen today. WBC is 8.9, hemoglobin 11.8. Patient is continued on Flagyl and Zosyn. 07/11: Patient denies having any abdominal pain. He states he is passing gas. He denies any nausea vomiting, no lightheadedness. Patient has been afebrile for greater than 24 hours, blood pressure 134/73, heart rate 83, pulse ox 97% on room air. Blood cultures are showing no growth at 96 hours and repeat blood culture no growth at 24 hours His diet is to be advanced and patient is been cleared by surgeon for discharge home today. Review of Systems Constitutional: Denies fatigue, denies fever, denies poor appetite, Denies anorexia, Denies weakness, Denies weight loss Eyes: denies blurred vision, denies pain Ears, nose, mouth and throat: Denies headache, Denies nasal congestion, Denies nasal discharge, Denies sore throat Cardiovascular: Denies chest pain, Denies decreased exercise tolerance, Denies dyspnea on exertion, Denies edema, Denies shortness of breath, Denies syncope Respiratory: Denies cough, Denies cough with sputum, Denies dyspnea Gastrointestinal: Denies abdominal pain, denies constipation, denies loss of appetite, Denies diarrhea, Denies nausea, Denies vomiting Genitourinary: Denies dysuria, Denies urinary retention Musculoskeletal: Denies muscle weakness, Denies myalgias Integumentary: Denies pruritus, Denies rash, Denies wounds Neurological: Denies change in mentation, Denies change in speech, Denies numbness, Denies weakness Psychiatric: Denies anxiety, Denies depression Endocrine: Denies fatigue, Denies weight change Objective - Vital Signs Vital signs: Vital Signs Temp 99.1 F 07/11/19 07:00 Pulse 83 07/11/19 07:00 Resp 16 07/11/19 07:00 BP 134/73 07/11/19 07:00 Pulse Ox 97 07/11/19 07:00 Intake & Output 07/10/19 07/11/19 07/11/19 18:59 06:59 18:59 Intake Total 1160 Balance 1160 Intake: IV 200 Piperacillin-Tazobactam 3 100 .375 gm In Sodium Chloride 0.9% 100 ml @ 25 mls/hr IVPB Q8HR ERI Rx# :[id number] metroNIDAZOLE-NS PMX 500 100 mg In Saline 1 100ml.bag @ 100 mls/hr IVPB Q6HR ERI Rx#:[id number] Intake, IV Titration 960 Amount Sodium Chloride 0.9% 1, 960 000 ml @ 120 mls/hr IV . Q8H20M ERI Rx#:[id number] Other: Voiding Method Toilet # Voids 4 2 # Bowel Movements 4 1 - Exam Gen: This is an obese 43-year-old male. He is resting bed appears to be in no acute distress. HEENT: Head is atraumatic, normocephalic. Pupils equal, round. Sclerae is anicteric. NECK: Supple. No JVD. No lymphadenopathy. No thyromegaly. LUNGS: Clear to auscultation. No wheezes or rhonchi. No intercostal retractions. HEART: Regular rate and rhythm. No murmur. ABDOMEN: Soft. Bowel sounds are present. No masses. Minimal left lower quadrant tenderness. EXTREMITIES: No pedal edema. No calf tenderness. Dorsalis pedis +2 bilaterally. NEUROLOGICAL: Patient is awake, alert and oriented x3. Cranial nerves 2 through 12 are grossly intact. - Labs CBC & Chem 7: 07/10/19 06:32 07/07/19 08:05 Labs: Microbiology - Last 24 Hours (Table) 07/09/19 23:38 Blood Culture - Preliminary Blood No Growth after 24 hours 07/07/19 09:25 Blood Culture - Preliminary Blood No Growth after 72 hours Assessment and Plan Plan: 1. Acute sigmoid diverticulitis with localized perforation. Continue clear liquid diet, IV Zosyn and Flagyl. Surgery does not have any plan for surgical intervention at this time. Diet advanced to full liquid to continue at home. 2. Sepsis secondary to acute sigmoid diverticulitis with fevers and leukocytosis. Continue as in #1. Repeat blood cultures ordered during febrile episode. Initial blood culture obtained on July 07 showing no growth at 72 hours. 3. DVT prophylaxis. SCDs and RYAN hose. 4. GI prophylaxis. Protonix. Discharge plan: home today Impression and plan of care have been directed as dictated by the signing physician. Ladi Loza nurse practitioner acting as scribe for signing physician.
== END 2019-07-11 14:05 | disposition home or self-care (01) | DRG 872 ==
LOC: EC 07:43 → 4MS4W 09:08
PROVIDERS: ADMIT Surgery Plastic and Reconstructive Surgery; ATTEND Surgery Plastic and Reconstructive Surgery
DX: A41.9 Sepsis, unspecified organism (principal); K57.20 Diverticulitis of large intestine with perforation and abscess without bleeding; Z81.8 Family history of other mental and behavioral disorders; Z82.49 Family history of ischemic heart disease and other diseases of the circulatory system; Z83.3 Family history of diabetes mellitus; Z87.891 Personal history of nicotine dependence
CPT/HCPCS: 36415; 74177; 80053; 83690; 85025; 87040; 96361; 96374; 99285

== ENCOUNTER 2020-04-26 07:01 | Inpatient (IN) | payer OTHER ==
[2020-04-24 13:19] VITALS: BMI 35.9
[2020-04-26] MEDS: LACTATED RINGERS 1,000 ML IV SCH ×3 (07:39→23:42)
[2020-04-26] MEDS ORDERED: LIDOCAINE 1% (10MG/ML) FOR IV START INTRADERMA ONE (07:39)
[2020-04-26] MEDS ORDERED: PROPOFOL 10 MG/ML 20 ML VIAL IV ONE (07:47)
[2020-04-26] MEDS ORDERED: LIDOCAINE 1% INJ 10MG/ML (20 ML MDV) ONE (07:47)
--- NOTE | 2020-04-26 07:50 | P.GSHP ---
History of Present Illness H&P Date: 04/26/20 CHIEF COMPLAINT: Abdominal pain with diverticulitis HISTORY OF PRESENT ILLNESS: The patient is a 44-year-old male who presents with abdominal pain including diarrhea as well as diverticulitis in the past Lower endoscopy was offered for further evaluation and management. PAST MEDICAL HISTORY: Please see list. PAST SURGICAL HISTORY: Please see list. MEDICATIONS: Please see list. ALLERGIES: Please see list. SOCIAL HISTORY: No illicit drug use FAMILY HISTORY: No reports of Crohn disease or ulcerative colitis. REVIEW OF ORGAN SYSTEMS: CONSTITUTIONAL: No reports of fevers or chills. No reports of weight loss despite prior attempts. GI: Has diarrhea including change in bowel habits. PHYSICAL EXAM: VITAL SIGNS: Stable GENERAL: Well-developed pleasant male in no acute distress. HEENT: No scleral icterus. Extraocular movements grossly intact. Moist buccal mucosa. NECK: Supple without lymphadenopathy. CHEST: Unlabored respirations. Equal bilateral excursions. CARDIOVASCULAR: Regular rate and rhythm. Distal 2+ pulses. ABDOMEN: Soft, nontender, nondistended. MUSCULOSKELETAL: No clubbing, cyanosis, or edema. ASSESSMENT: 1. History of diverticulitis 2. Change in bowel habits. PLAN: 1. Recommend proceeding with a lower endoscopy Past Medical History Past Medical History: No Reported History Additional Past Medical History / Comment(s): Diverticulitis diagnosed with perforation -recent flare up within past 3 days History of Any Multi-Drug Resistant Organisms: None Reported Past Surgical History: Ear Surgery, Orthopedic Surgery Additional Past Surgical History / Comment(s): Bilateral myringotomy/tubes then L ear had titanium tube placed, L ankle ORIF Past Anesthesia/Blood Transfusion Reactions: No Reported Reaction Smoking Status: Former smoker - Past Family History Father Family Medical History: Congestive Heart Failure (CHF), Coronary Artery Disease (CAD), CVA/TIA, Diabetes Mellitus Additional Family Medical History / Comment(s): TIAs, coronary stents. Father from CHF at the age of 62 yrs. Mother Family Medical History: Renal Disease Additional Family Medical History / Comment(s): Mother has kidney problems and depression. Brother(s) Additional Family Medical History / Comment(s): Patient has 1 brother and 1 sister with no major medical problems. Patient has 3 children with no major medical problems. Medications and Allergies Home Medications Medication Instructions Recorded Confirmed Type diphenhydrAMINE [Benadryl] 50 mg PO DAILY PRN 04/24/20 04/26/20 History Allergies Allergy/AdvReac Type Severity Reaction Status Date / Time No Known Allergies Allergy Verified 04/26/20 07:28 Surgical - Exam Vital Signs Temp Pulse Resp BP Pulse Ox 97.9 F 78 18 143/79 99 04/26/20 07:32 04/26/20 07:32 04/26/20 07:32 04/26/20 07:32 04/26/20 07:32
--- NOTE | 2020-04-26 08:12 | P.PCN ---
Date of Procedure: 04/26/20 Description of Procedure: PREOPERATIVE DIAGNOSIS: History of diverticulitis Change in bowel habits POSTOPERATIVE DIAGNOSIS: Obstructing sigmoid mass History of diverticulitis Change in bowel habits OPERATION: Incomplete colonoscopy/Flexible sigmoidoscopy to the sigmoid colon Incomplete colonoscopy/Flexible sigmoidoscopy with Joanna ink tatto at 20 cm from the anal verge. Incomplete colonoscopy/Flexible sigmoidoscopy with snare polypectomy of obstructing sigmoid lesion. SURGEON: Rach Soto MD. ANESTHESIA: MAC. INDICATIONS: The patient is a 44-year-old male who presents with history of diverticulitis and change in bowel habits. Benefits and risks were described and informed consent was obtained. DESCRIPTION OF PROCEDURE: The patient had undergone bowel prep. He had been brought into the endoscopy room and laid in the left lateral decubitus position. After adequate intravenous sedation, the rectum was examined with 2% lidocaine jelly. No external hemorrhoids were encountered. The rectal tone was within normal limits. No lesions were palpated in the rectal vault. The prostate was smooth without nodularity. An Olympus colonoscope was advanced along the rectum to a circumferential polyploid obstructing lesion at the sigmoid colon at 20 cm to 25 cm from the anal verge. The lesion was circumferential, polypoid with inflammatory changes. The scope could not advance beyond the obstructing lesion. A snare polypectomy was performed to obtain specimen. Additionally, Joanna ink tattoo was placed 4-mL just inferior and along the borders of the neoplasm to plan for resection. No inflamed internal hemorrhoids were identified. The colon was desufflated. The colonoscope was removed. FINDINGS: [place]ronchik preparation quality scale 3 (1-5) No external prolapsed hemorrhoids. Scope advanced to the sigmoid colon. Circumferential sigmoid neoplasm with obstruction at 20 to 25 cm from the anal verge. RECOMMENDATIONS: 1. Will need CT of the abdomen and pelvis are metastatic workup. 2. Recommend colectomy for an obstructing sigmoid lesion 3. Recommend CBC, CMP, CEA level
[2020-04-26] MEDS ORDERED: IOPAMIDOL CONTRAST (ORAL USE) VIAL PO PRN (08:22)
[2020-04-26] MEDS ORDERED: ONDANSETRON 4 MG/2 ML VIAL IVP PRN (08:31)
[2020-04-26] MEDS ORDERED: METOCLOPRAMIDE 5 MG/ML 2 ML VIAL IVP PRN (08:31)
[2020-04-26] MEDS ORDERED: NALOXONE 0.4 MG/ML 1 ML VIAL IV PRN (08:31)
[2020-04-26] MEDS ORDERED: HYDROmorphone 0.5 MG/0.5 ML SYRINGE IVP PRN (08:31)
[2020-04-26] MEDS ORDERED: POLYETHYLENE GLYCOL LYTES SOLN 4,000 ML SOLN.RECON PO ONE (08:33)
[2020-04-26] MEDS ORDERED: Antibiotics per Pharmacy 1 EACH MISC MISCELLANE PRN (08:33)
--- NOTE | 2020-04-26 08:38 | P.PN ---
Progress Note - Text Progress Note Date: 04/26/20 Following his procedure, patient has a obstructing lesion of the sigmoid colon. Patient then gives additional history that his symptoms has been ongoing since last year including chronic diarrhea and abdominal pain. Patient was fearful of coming in due to pandemic although being told since June of last year to have a colonoscopy prior to the end of the year. Patient also reports recent diverticulitis attack 1-2 weeks ago. With findings of obstructing tumor of the sigmoid colon, admission with CT workup advised to plan for surgical resection. Patient prep was subpar. Will need additional prep. Colectomy advised.
[2020-04-26 09:52] LABS: Basophils # (A) 0.1 k/uL (0-0.2); Basophils % (A) 1 %; Eosinophils # (A) 0.1 k/uL (0-0.7); Eosinophils % (A) 1 %; HCT 40.2 % (39.0-53.0); HGB 13.3 gm/dL (13.0-17.5); Lymphocytes # (A) 1.7 k/uL (1.0-4.8); Lymphocytes % (A) 19 %; MCH 27.9 pg (25.0-35.0); MCHC 32.9 g/dL (31.0-37.0); MCV 84.8 fL (80.0-100.0); Mean Platelet Volume 7.7; Monocytes # (A) 0.5 k/uL (0-1.0); Monocytes % (A) 6 %; Neutrophils # (A) 6.2 k/uL (1.3-7.7); Neutrophils % (A) 71 %; Platelet Count 366 k/uL (150-450); RBC 4.74 m/uL (4.30-5.90); RDW 12.4 % (11.5-15.5); WBC 8.7 k/uL (3.8-10.6)
[2020-04-26 10:12] LABS: ALT 19 U/L (4-49); AST 17 U/L (17-59); African American GFR (CKD) >90 (>60 ml/min/1.73 sqM); Alkaline Phosphatase 75 U/L (38-126); Anion Gap 8 mmol/L; Blood Urea Nitrogen 9 mg/dL (9-20); Calcium 9.2 mg/dL (8.4-10.2); Carbon Dioxide 25 mmol/L (22-30); Chloride 107 mmol/L (98-107); Glucose 102 mg/dL (74-99); Non-African American GFR(CKD) >90 (>60 ml/min/1.73 sqM); Phosphorus 3.3 mg/dL (2.5-4.5); Potassium 4.1 mmol/L (3.5-5.1); Sodium 140 mmol/L (137-145); Total Bilirubin 0.4 mg/dL (0.2-1.3); Total Protein 6.7 g/dL (6.3-8.2)
--- NOTE | 2020-04-26 11:46 | CT ---
EXAMINATION TYPE: CT abdomen pelvis w con DATE OF EXAM: 04/26/2020 COMPARISON: 07/07/2019 HISTORY: Sigmoid colon obstruction/mass CT DLP: 1682 mGycm CONTRAST: CT scan of the abdomen and pelvis is performed with Oral Contrast and with IV Contrast, patient injec alvin with 100 mL of Isovue 300. FINDINGS: LUNG BASES-: No visible nodule. No infiltrate. LIVER/GB: No calcified gallstones. No space occupying hepatic lesion. Biliary tree is of normal ca liber. PANCREAS: No inflammation. No distinct mass. SPLEEN: No splenic enlargement. No lesion seen. ADRENALS: No nodule. No thickening. KIDNEYS/BLADDER: No hydronephrosis. No nephrolithiasis. No distinct renal mass. Urinary bladder g rossly unremarkable. BOWEL: Normal appendix. Moderate wall thickening with surrounding inflammatory change involving the s igmoid colon compatible with sigmoid diverticulitis. No evidence for abscess. No free air seen. GENITAL ORGANS: No gross abnormality. LYMPH NODES: No greater than 1cm abdominal or pelvic lymph nodes are appreciated. AORTA: No significant abnormality. OSSEOUS STRUCTURES: No significant abnormality is seen. OTHER: No significant additional abnormality is seen. IMPRESSION: 1. Acute sigmoid diverticulitis without evidence for perforation or drainable abscess at this time.
[2020-04-26] MEDS: PANTOPRAZOLE 40 MG/10 ML VIAL IV SCH (14:08)
[2020-04-26] MEDS: metroNIDAZOLE 500 MG TAB PO SCH ×3 (14:48→23:12)
[2020-04-26] MEDS: NEOMYCIN 500 MG TAB PO SCH ×3 (15:14→23:55)
[2020-04-26 16:13] LABS: Carcinoembryonic Antigen 0.8 ng/mL (0.0-4.9)
[2020-04-26 16:20] LABS: % Iron Saturation 11.53 (15.00-50.00); Iron 34 ug/dL (65-175); Total Iron Binding Capacity 295 ug/dL (228-460)
[2020-04-26 16:26] LABS: Alpha Fetoprotein, Tumor Mkr <2.5 ng/mL (0.0-7.9)
[2020-04-26] MEDS ORDERED: TEMAZEPAM 15 MG CAP PO ONE (21:00)
[2020-04-26] MEDS ORDERED: NEOMYCIN 500 MG TAB PO SCH (23:00)
[2020-04-27] MEDS ORDERED: metroNIDAZOLE-NS PMX 500 MG in SALINE 1 100ML.BAG IVPB ONE (05:00)
[2020-04-27] MEDS ORDERED: MIDAZOLAM 2 MG/2 ML VIAL IV PRN (06:00)
[2020-04-27] MEDS ORDERED: fentaNYL (PF) 50 MCG/ML 2 ML AMP IVP PRN (06:00)
[2020-04-27] MEDS ORDERED: LIDOCAINE 1% (10MG/ML) FOR IV START INTRADERMA PRN (06:00)
[2020-04-27] MEDS ORDERED: DEXAMETHASONE SOD PHOSPHATE 10 MG/ML 1 ML VIAL IV ONE (06:00)
[2020-04-27] MEDS ORDERED: HYDROmorphone 0.5 MG/0.5 ML SYRINGE IVP PRN (06:00)
[2020-04-27] MEDS ORDERED: ONDANSETRON 4 MG/2 ML VIAL IVP ONE (06:00)
[2020-04-27] MEDS: HEPARIN SODIUM,PORCINE 5,000 UNIT/ML 1 ML VIAL SQ ONE ×2 (07:59→13:54)
[2020-04-27] MEDS ORDERED: ALVIMOPAN 12 MG CAPSULE PO ONE (08:33)
[2020-04-27] MEDS ORDERED: MELOXICAM 7.5 MG TAB PO ONE (08:33)
[2020-04-27] MEDS ORDERED: ACETAMINOPHEN TAB 500 MG TAB PO ONE (08:33)
[2020-04-27] MEDS ORDERED: IV FLUID CONTINUATION 1,000 ML IV ONE (13:21)
--- NOTE | 2020-04-27 13:56 | P.HPADDEND ---
H&P Addendum H&P Addendum Date: 04/27/20 Patient seen and evaluated. Computed tomography scan findings reviewed demonstrating severity of diverticulitis. Blood work demonstrates no elevation of tumor markers. Robotic sigmoid colectomy including possibility of open technique an ostomy bag were described. Patient completed his prep. We'll pr oceed with robotic sigmoid colectomy. Patient and family wish to proceed.
[2020-04-27] MEDS ORDERED: LIDOCAINE 1% INJ 10MG/ML (20 ML MDV) ONE (14:10)
[2020-04-27] MEDS ORDERED: fentaNYL (PF) 50 MCG/ML 2 ML AMP ONE (14:10)
[2020-04-27] MEDS ORDERED: ROPIVACAINE 5 MG/ML 30 ML VIAL ONE (14:10)
[2020-04-27] MEDS ORDERED: SUCCINYLCHOLINE CHLORIDE 100 MG/5 ML SYR IV ONE (14:10)
[2020-04-27] MEDS ORDERED: PROPOFOL 10 MG/ML 20 ML VIAL IV ONE (14:10)
[2020-04-27] MEDS ORDERED: MIDAZOLAM 2 MG/2 ML VIAL ONE (14:10)
[2020-04-27] MEDS ORDERED: GLYCOPYRROLATE 0.2 MG/ML 2 ML VIAL ONE (14:10)
[2020-04-27] MEDS ORDERED: ROCURONIUM BROMIDE 10 MG/ML 5 ML VIAL IV ONE (14:10)
[2020-04-27] MEDS ORDERED: NEOSTIGMINE 1 MG/ML 10 ML VIAL ONE (14:10)
[2020-04-27] MEDS ORDERED: HYDROmorphone (PF) 1 MG/ML ONE (14:10)
[2020-04-27] MEDS ORDERED: DEXAMETHASONE SOD PHOSPHATE 4 MG/ML 1 ML VIAL ONE (14:10)
[2020-04-27] MEDS ORDERED: BUPIVACAINE (PF) 0.25% 30 ML VIAL SQ ONE ×2 (14:39→14:52)
[2020-04-27] MEDS: PANTOPRAZOLE 40 MG/10 ML VIAL IV SCH (15:34)
--- NOTE | 2020-04-27 15:39 | P.ANPRN ---
Procedure Note - Anesthesia - Nerve Block Performed Bilateral Transversus Abdominis Single Time Out Performed: Yes Date of Procedure: 04/27/20 Procedure Start Time: 13:44 Procedure Stop Time: 13:56 Location of Patient: PreOp Indication: Requested by Surgeon Specifically requested for management of pain by DrYue: Rach Soto Sedation Type: Sedate with meaningful contact maintained Preparation: Sterile Prep Position: Supine Needle Types: Pajunk Needle Gauge: 20 Ultrasound used to visualize needle placement: Yes Ultrasound used to observe medication spread: Yes Injectate: 0.5% Ropivacaine (see comment for volume) (20 ml plus Dexamethasone 4 mg per side) Blood Aspirated: No Pain Paresthesia on Injection Noted: No Resistance on Injection: Normal Image Stored and Saved: Yes Events: Uneventful and Well Tolerated
[2020-04-27] MEDS ORDERED: LACTATED RINGERS 1,000 ML IV ONE ×3 (15:47→20:30)
[2020-04-27] MEDS ORDERED: BENZOCAINE/MENTHOL LOZENG 1 EACH LOZENGE MUCOUS MEM PRN (21:32)
--- NOTE | 2020-04-27 21:32 | P.OP ---
Date of Procedure: 04/27/20 Description of Procedure: SURGEON: CR WHITT MD PREOPERATIVE DIAGNOSES: 1. Sigmoid diverticulitis with large bowel obstruction 2. Sigmoid mass 3. Gastroesophageal reflux disease 4. Morbid obesity due to excess calories, BMI 36.0 POSTOPERATIVE DIAGNOSES: 1. Sigmoid diverticulitis with large bowel obstruction with phlegmon 2. Sigmoid mass 3. Gastroesophageal reflux disease 4. Morbid obesity due to excess calories, BMI 36.0 5. Pelvic abscess, diverticulitis 6. Severe pelvic peritoneal adhesions OPERATION: 1. Robotic-assisted daVinci Xi laparoscopic sigmoid colectomy with low anterior resection using powered Ethicon stapler 29 mm ILS 2. Robotic-assisted daVinci Xi laparoscopic extensive lysis of adhesions over 2 hours 3. Intraoperative colonoscopy for flexible sigmoidoscopy 4. Placement of round #19 drain right pelvis Anesthesia: GETA, regional, local Estimated Blood Loss (ml): 100 Pathology: other (Sigmoid colectomy, anastomosis) Condition: stable Disposition: floor COMPLICATIONS: None. Operative Findings: 1. Phlegmon in pelvis with sigmoid colon attached to bladder posteriorly with extensive lysis of adhesions over 2 hours performed without injury to bladder 2. EEA anastomosis 29 mm powered Ethicon stapler for low anterior resection 3. Intact anastomosis confirmed by a leak test and endoscopic images obtained 4. No tension or torsion along the anastomosis 5. Tattoo area resection at sigmoid colon. INDICATIONS: The patient is a 44-year-old male who presents with sigmoid diverticulitis with large bowel obstruction found per colonoscopy. Benefits and risks of surgical intervention was described in detail including infection, injury to the ureter, colostomy creation, possibility for additional surgery was discussed at length. Informed consent was obtained. All questions of the patient and family were answered. DESCRIPTION: Earlier the patient had undergone a bowel prep using the enhanced colon recovery program. The patient was transferred to the operating room and placed supine. After general induction, the abdomen was prepped and draped in standard sterile fashion. Ioban was placed along the abdomen to minimize any contamination of skin floor. A Xie catheter was placed. After a timeout protocol was performed, attention was then brought to the left upper quadrant whereby a 0 degree 5 mm laparoscopic trocar entry was performed. The abdominal cavity was entered and insufflated to 15 mmHg pressure, which was tolerated well. Diagnostic laparoscopy confirmed adherent sigmoid colon to the dome of the bladder with phlegmon. The liver surface was unremarkable. The small bowel was unremarkable. Next a robotic 12-mm trocar was placed along the right lateral abdominal wall 20 cm superior from the pelvis. Two 8 mm ports were placed along the upper abdomen. Ports were placed 8 to 10 cm apart from each other including 15-20 cm away from the target anatomy of the left pelvis. The 5-mm port was exchanged for an 8 mm robotic port at the left upper quadrant. The robot was docked along the right side. The robotic system was docked and primed as described. The patient was positioned in steep Trendelenburg position,16-degrees. Instruments were interchanged by the senior assistant manager including scissors, needle fire truck driver, robot suction irrigation, robotic stapler and vessel sealer. The robot stapler was prepared along the right lateral abdominal wall. Next, attention was brought to the sigmoid colon A stay suture using 3-0 silk was placed along the anterior serosa of the sigmoid colon. The sigmoid mesentery was mobilized using a vessel sealer whereby the descending colon was marked and tagged. Using robot stapler 60 mm black and green loads, the proximal redundant sigmoid colon was divided. The mesentery of the sigmoid colon was mobilized towards the pelvic brim and sacral promontory using a vessel sealer. Dense phlegmon of the sigmoid colon was found with drainage of a 5-mL abscess along the posterior wall of the bladder. Extensive lysis of adhesions over 2 hrs was performed using vessel sealer, hook cautery without injury to the bladder. Circumferential dissection was performed to the sacral promontory for resection. Next, the sigmoid colon was divided using the robotic stapler 60 mm black and green loads used to resect at the proximal rectum distal to the tattooed area of the sigmoid mass. The rest of the sigmoid colon mesentery was mobilized using vessel sealer. Additionally, the sigmoid colon was mobilized onto the colon to avoid injury to the ureters. I re-scrubbed into the case. The robotic arms were undocked. A 29-mm anvil was positioned after placing a suture along the anvil information security specialist through the left upper abdomen. The descending resected colon was opened for placement of the anvil. The colotomy was closed using black staple load. The shaft of the anvil was exited via the staple line and the anvil information security specialist was removed. I went to the foot of the bed to place the ILS stapler via the rectum. The anvil and stapler were mated for 1 minute. The doughnuts were intact. An intra-operative colonoscope was used for a flexible sigmoidoscopy. A leak test was performed and negative. The robot was undocked. Via the left upper quadrant port, the sigmoid colon was removed using a 15-mm Endo Catch bag. All sponges, needles were removed from the abdominal cavity. The left upper quadrant incision was widened to 4-cm. No contamination had occurred throughout the case. The fascial defect was oversewn using 0 Vicryl and a Jhonatan Murphy. A round #19 drain was placed anterior to the anastomosis along the right pelvis and exited via the right lateral abdominal wall. A 2-0 nylon stitch was placed. Next all pneumoperitoneum was evacuated from the abdominal cavity. The 8-mm trocar sites were reapproximated using 4-0 Monocryl in an interrupted subcuticular fashion. Local anesthetic was infiltrated to all wounds for postop analgesia. All incisions were also cleansed with diluted hydrogen peroxide. An Optifoam surgical dressing was placed over the epigastrium of the colon extraction site and drain site. A suction bulb was placed along the tubing. Liquid glue was applied to the rest of the skin incisions. The patient had tolerated the procedure well. The patient was extubated successfully. Intraoperative photos were reviewed with the patient's family who were overall pleased with the level of care. The patient was transferred to the postanesthesia care unit in stable condition.
[2020-04-27] MEDS: LACTATED RINGERS 1,000 ML IV SCH (21:54)
[2020-04-27] MEDS ORDERED: SODIUM CHLORIDE IV SCH ×2 (22:00)
[2020-04-27] MEDS ORDERED: KCL IV SCH ×2 (22:00)
[2020-04-27] MEDS ORDERED: NACL IV SCH ×2 (22:00)
[2020-04-27] MEDS: GABAPENTIN 300 MG CAP PO SCH (22:34)
[2020-04-27] MEDS: HYDROmorphone 1 MG/ML 1 ML SYRINGE IVP PRN (22:35)
[2020-04-27] MEDS: 0.9% NACL WITH KCL 20 MEQ/L 1,000 ML IV SCH (23:44)
[2020-04-27] MEDS: ACETAMINOPHEN TAB 500 MG TAB PO SCH (23:44)
[2020-04-27] MEDS: KETOROLAC 15 MG/ML 1 ML VIAL IVP SCH (23:45)
[2020-04-27] MEDS: PIPERACILLIN-TAZOBACTAM 3.375 GM in SODIUM CHLORIDE 0.9% 100 ML IVPB SCH (23:50)
[2020-04-28] MEDS: HYDROmorphone 1 MG/ML 1 ML SYRINGE IVP PRN (03:13)
[2020-04-28] MEDS: ACETAMINOPHEN TAB 500 MG TAB PO SCH ×4 (06:01→23:14)
[2020-04-28] MEDS: LACTATED RINGERS 1,000 ML IV SCH (06:02)
[2020-04-28] MEDS: KETOROLAC 15 MG/ML 1 ML VIAL IVP SCH ×4 (06:02→23:13)
[2020-04-28 07:27] LABS: Basophils % (A) 0 %; Eosinophils % (A) 0 %; HCT 38.5 % (39.0-53.0); HGB 12.4 gm/dL (13.0-17.5); Lymphocytes # (A) 1.4 k/uL (1.0-4.8); Lymphocytes % (A) 9 %; MCH 27.9 pg (25.0-35.0); MCHC 32.3 g/dL (31.0-37.0); MCV 86.3 fL (80.0-100.0); Mean Platelet Volume 7.4; Monocytes # (A) 0.8 k/uL (0-1.0); Monocytes % (A) 5 %; Neutrophils # (A) 13.8 k/uL (1.3-7.7); Neutrophils % (A) 86 %; Platelet Count 369 k/uL (150-450); RBC 4.46 m/uL (4.30-5.90); RDW 12.6 % (11.5-15.5); WBC 16.1 k/uL (3.8-10.6)
[2020-04-28 07:39] LABS: African American GFR (CKD) >90 (>60 ml/min/1.73 sqM); Anion Gap 7 mmol/L; Blood Urea Nitrogen 12 mg/dL (9-20); Calcium 8.4 mg/dL (8.4-10.2); Carbon Dioxide 24 mmol/L (22-30); Chloride 106 mmol/L (98-107); Glucose 100 mg/dL (74-99); Non-African American GFR(CKD) >90 (>60 ml/min/1.73 sqM); Potassium 4.6 mmol/L (3.5-5.1); Sodium 137 mmol/L (137-145)
[2020-04-28] MEDS: FAMOTIDINE 20 MG/2 ML VIAL IV SCH ×2 (08:27→20:54)
[2020-04-28] MEDS: ALVIMOPAN 12 MG CAPSULE PO SCH ×2 (08:28→20:54)
[2020-04-28] MEDS: PANTOPRAZOLE 40 MG/10 ML VIAL IV SCH (08:28)
[2020-04-28] MEDS: PIPERACILLIN-TAZOBACTAM 3.375 GM in SODIUM CHLORIDE 0.9% 100 ML IVPB SCH ×3 (08:28→23:13)
[2020-04-28] MEDS: TAMSULOSIN 0.4 MG CAP.ER.24H PO SCH (08:28)
[2020-04-28] MEDS: GABAPENTIN 300 MG CAP PO SCH ×3 (08:28→20:54)
--- NOTE | 2020-04-28 09:30 | P.PN ---
Subjective Progress Note Date: 04/28/20 Principal diagnosis: Diverticulitis Patient doing fairly well today after robotic resection yesterday. White blood cell count 16.1, hemoglobin 12.4. Drain remains serosanguineous. Xie catheter being removed this morning. Tolerating clears. Pain is minimal. Objective - Vital Signs Vital signs: Vital Signs Temp 98.2 F 04/28/20 07:00 Pulse 86 04/28/20 07:00 Resp 16 04/28/20 07:00 BP 131/82 04/28/20 07:00 Pulse Ox 98 04/28/20 08:35 Intake & Output 04/27/20 04/28/20 04/28/20 18:59 06:59 18:59 Intake Total 1750 350 Output Total 1355 Balance 1750 -1005 Intake: IV 1750 350 Output: Drainage 80 Right Abdomen 80 Urine 1175 Estimated Blood Loss 100 Other: Voiding Method Toilet Indwelling Catheter # Voids 3 - Exam Abdomen: Soft, nondistended, incisions clean and dry, dressing in place, draining serosanguineous - Labs CBC & Chem 7: 04/28/20 06:51 04/28/20 06:51 Labs: Abnormal Lab Results - Last 24 Hours (Table) 04/28/20 04/28/20 Range/Units 06:51 06:51 WBC 16.1 H (3.8-10.6) k/uL Hgb 12.4 L (13.0-17.5) gm/dL Hct 38.5 L (39.0-53.0) % Neutrophils # 13.8 H (1.3-7.7) k/uL Glucose 100 H (74-99) mg/dL Assessment and Plan (1) Diverticulitis Narrative/Plan: Overall patient doing fairly well. Continue clear liquids. Remove Xie catheter. Ambulate. Await return bowel function. Current Visit: Yes Status: Acute Code(s): K57.92 - DVTRCLI OF INTEST, PART UNSP, W/O PERF OR ABSCESS W/O BLEED SNOMED Code(s): 826365013
[2020-04-28] MEDS: 0.9% NACL WITH KCL 20 MEQ/L 1,000 ML IV SCH ×3 (11:02→20:54)
--- NOTE | 2020-04-28 12:29 | P.CONS ---
History of Present Illness - Reason for Consult Consult date: 04/28/20 - History of Present Illness This is a 44-year-old gentleman patient of Dr. Foss with past medical history of diverticulosis. Patient was diagnosed with diverticulitis with perforation and underwent a robotic low anterior resection, possible sigmoidoscopy, placement of a drain to the right pelvis, and extensive lysis of adhesions. At this time patient is resting comfortably in bed. Patient has minimal pain that is controlled with pain analgesics. Patient denies any fever or chills. Patient has a history of smoking 15 years ago. Patient states that last June he was diagnosed with diverticulosis. He continued to have some discomfort and pain however it wasn't until 3 days ago that he had increased pain to the site. Patient was supposed to have a workup and an endoscopy performed however due to the pandemic he was unable to follow through with testing. Review Of Systems: Constitutional: No fever, no chills, no night sweats. No weight change. No weakness, fatigue or lethargy. No daytime sleepiness. EENT: No headache. No blurred vision or double vision, no loss of vision. No loss of Hearing, no ringing in the ears, no dizziness. No nasal drainage or congestion. No epistaxis. No sore throat. Lungs: No shortness of breath, cough, no sputum production. No wheezing. Cardiovascular: No chest pain, no lower extremity edema. No palpitations. No paroxysmal nocturnal dyspnea. No orthopnea. No lightheadedness or dizziness. No syncopal episodes. Abdominal: Reports abdominal discomfort. No nausea, vomiting. no diarrhea. No constipation. No bloody or tarry stools. no loss of appetite. Genitourinary: No dysuria, increased frequency, urgency. No urinary retention. Musculoskeletal: No myalgias. No muscle weakness, no gait dysfunction, no frequent falls. No back pain. No neck pain. Integumentary: No wounds, no lesions. No rash or pruritus. No unusual bruising. No change in hair or nails. Neurologic: No aphasia. No facial droop. No change in mentation. No head injury. No headache. No paralysis. No paresthesia. Psychiatric: No depression. No anxiety. No mood swings. Endocrine: No abnormal blood sugars. No weight change. No excessive sweating or thirst. Physical exam: General Appearance: Alert, cooperative, no distress, appears stated age. Neck HEENT: Supple, no lymphadenopathy, no thyroid enlargement, no carotid bruits. Lungs: Clear to auscultation without crackles or wheezes no rhonchi, no deformity. Chest Wall: Chest wall normal expansion with deep inspiration no tenderness and no deformity was found on exam, no costochondral pain or discomfort. Heart: Regular rate and rhythm, S1, S2 normal, no murmur, rub or gallop. Back: Symmetric, no curvature, ROM normal, no CVA tenderness. Abdomen: Abdominal binder in place, dressing to the right upper quadrant, ANAHI drain intact with 30 ML's of serosanguineous drainage, Soft, tender, no rebound or rigidity, no hepatosplenomegaly. Positive bowel sounds Extremities: Extremities normal, atraumatic, no cyanosis or edema. Pulses: 2+ and symmetric. Skin: Skin color, texture, tugor normal, no rashes or lesions. Neurologic: Alert oriented x3 cranial nerves II through XII intact, no motor deficit, no abnormal balance or gait Assessment/plan: 1. Diverticulitis with robotic low anterior resection postop day 1. Continue with pain management. Diet to advance as per surgery. In doing catheters to removed. Ambulate. Continue utilizing incentive spirometer. 2. Obesity 3. BPH. Flomax 0.4 mg by mouth 4. GI prophylaxis. Pepcid 20 mg IV twice a day, 5. DVT prophylaxis. Pneumatic compression sleeves Thank you for the consultation. We will continue to assist the patient's medical needs while the patient is in the hospital. Impression and plan of care have been directed as dictated by the signing physician. Elba Handy nurse practitioner acting as scribe for signing physician. Past Medical History Past Medical History: No Reported History Additional Past Medical History / Comment(s): Diverticulitis diagnosed with perforation -recent flare up within past 3 days History of Any Multi-Drug Resistant Organisms: None Reported Past Surgical History: Ear Surgery, Orthopedic Surgery Additional Past Surgical History / Comment(s): Bilateral myringotomy/tubes then L ear had titanium tube placed, L ankle ORIF Past Anesthesia/Blood Transfusion Reactions: No Reported Reaction Past Psychological History: No Psychological Hx Reported Additional Psychological History / Comment(s): Pt resides with his spouse and 2 daughters. He is independent. Smoking Status: Former smoker Past Alcohol Use History: Occasional Additional Past Alcohol Use History / Comment(s): smoked off and on since early 19 years 1/2 ppd quit 2004. Past Drug Use History: None Reported - Past Family History Father Family Medical History: Congestive Heart Failure (CHF), Coronary Artery Disease (CAD), CVA/TIA, Diabetes Mellitus Additional Family Medical History / Comment(s): TIAs, coronary stents. Father from CHF at the age of 62 yrs. Mother Family Medical History: Renal Disease Additional Family Medical History / Comment(s): Mother has kidney problems and depression. Brother(s) Additional Family Medical History / Comment(s): Patient has 1 brother and 1 sister with no major medical problems. Patient has 3 children with no major medical problems. Medications and Allergies Home Medications Medication Instructions Recorded Confirmed Type diphenhydrAMINE [Benadryl] 50 mg PO DAILY PRN 04/24/20 04/26/20 History Allergies Allergy/AdvReac Type Severity Reaction Status Date / Time No Known Allergies Allergy Verified 04/26/20 07:28 Physical Exam Vitals: Vital Signs Temp Pulse Resp BP BP Pulse Ox 04/28/20 08:35 98 04/28/20 07:00 98.2 F 86 16 131/82 98 04/28/20 00:15 97.6 F 74 12 129/81 95 04/28/20 00:00 82 133/89 04/27/20 23:45 90 142/87 04/27/20 23:30 85 130/88 04/27/20 23:15 89 138/92 04/27/20 23:00 93 128/83 04/27/20 22:45 89 142/80 93 L 04/27/20 22:30 94 134/87 94 L 04/27/20 22:15 98.0 F 94 14 133/82 95 04/27/20 21:55 88 16 139/79 99 04/27/20 21:40 92 16 130/75 98 04/27/20 21:25 84 16 121/67 99 04/27/20 21:09 98.7 F 71 16 115/68 95 04/27/20 13:55 71 16 133/73 99 04/27/20 13:48 67 16 126/73 100 04/27/20 13:16 97.9 F 79 16 134/78 100 Intake and Output 04/27/20 04/28/20 04/28/20 22:59 06:59 14:59 Intake Total 1350 Output Total 425 930 Balance 925 -930 Intake: IV 1350 Output: Drainage 80 Right Abdomen 80 Urine 325 850 Estimated Blood Loss 100 Other: Voiding Method Indwelling Catheter Results CBC & Chem 7: 04/28/20 06:51 04/28/20 06:51 Labs: Abnormal Lab Results - Last 24 Hours (Table) 04/28/20 04/28/20 Range/Units 06:51 06:51 WBC 16.1 H (3.8-10.6) k/uL Hgb 12.4 L (13.0-17.5) gm/dL Hct 38.5 L (39.0-53.0) % Neutrophils # 13.8 H (1.3-7.7) k/uL Glucose 100 H (74-99) mg/dL
[2020-04-29] MEDS: LACTATED RINGERS 1,000 ML IV SCH (05:43)
[2020-04-29] MEDS: ACETAMINOPHEN TAB 500 MG TAB PO SCH ×2 (05:53→13:15)
[2020-04-29] MEDS: KETOROLAC 15 MG/ML 1 ML VIAL IVP SCH ×2 (05:53→13:15)
[2020-04-29] MEDS: GABAPENTIN 300 MG CAP PO SCH (07:17)
[2020-04-29] MEDS: PANTOPRAZOLE 40 MG/10 ML VIAL IV SCH (07:17)
[2020-04-29] MEDS: ALVIMOPAN 12 MG CAPSULE PO SCH (07:17)
[2020-04-29] MEDS: TAMSULOSIN 0.4 MG CAP.ER.24H PO SCH (07:17)
[2020-04-29] MEDS: FAMOTIDINE 20 MG/2 ML VIAL IV SCH (07:17)
[2020-04-29] MEDS: PIPERACILLIN-TAZOBACTAM 3.375 GM in SODIUM CHLORIDE 0.9% 100 ML IVPB SCH (07:17)
[2020-04-29] MEDS: 0.9% NACL WITH KCL 20 MEQ/L 1,000 ML IV SCH (07:18)
[2020-04-29 08:39] LABS: Basophils # (A) 0.1 k/uL (0-0.2); Basophils % (A) 1 %; Eosinophils # (A) 0.1 k/uL (0-0.7); Eosinophils % (A) 1 %; HCT 39.4 % (39.0-53.0); HGB 12.4 gm/dL (13.0-17.5); Lymphocytes # (A) 1.7 k/uL (1.0-4.8); Lymphocytes % (A) 16 %; MCH 27.3 pg (25.0-35.0); MCHC 31.5 g/dL (31.0-37.0); MCV 86.7 fL (80.0-100.0); Mean Platelet Volume 7.5; Monocytes # (A) 0.4 k/uL (0-1.0); Monocytes % (A) 4 %; Neutrophils # (A) 8.2 k/uL (1.3-7.7); Neutrophils % (A) 78 %; Platelet Count 373 k/uL (150-450); RBC 4.54 m/uL (4.30-5.90); RDW 12.5 % (11.5-15.5); WBC 10.5 k/uL (3.8-10.6)
[2020-04-29 08:55] LABS: African American GFR (CKD) >90 (>60 ml/min/1.73 sqM); Anion Gap 6 mmol/L; Blood Urea Nitrogen 7 mg/dL (9-20); Calcium 8.1 mg/dL (8.4-10.2); Carbon Dioxide 24 mmol/L (22-30); Chloride 109 mmol/L (98-107); Glucose 106 mg/dL (74-99); Non-African American GFR(CKD) >90 (>60 ml/min/1.73 sqM); Potassium 4.1 mmol/L (3.5-5.1); Sodium 139 mmol/L (137-145)
--- NOTE | 2020-04-29 08:55 | P.PN ---
Subjective Progress Note Date: 04/29/20 This is a 44-year-old gentleman patient of Dr. Foss with past medical history of diverticulosis. Patient was diagnosed with diverticulitis with perforation and underwent a robotic low anterior resection, possible sigmoidoscopy, placement of a drain to the right pelvis, and extensive lysis of adhesions. At this time patient is resting comfortably in bed. Patient has minimal pain that is controlled with pain analgesics. Patient denies any fever or chills. Patient has a history of smoking 15 years ago. Patient states that last June he was diagnosed with diverticulosis. He continued to have some discomfort and pain however it wasn't until 3 days ago that he had increased pain to the site. Patient was supposed to have a workup and an endoscopy performed however due to the pandemic he was unable to follow through with testing. 04/29: Patient is sitting up in chair stating she is feeling better. Patient did have a bowel movement yesterday that was a mixture of blood in stool. He contin ues to have positive bowel sounds and passing gas. Patient was seen by surgery who stated that he could go home today. Patient has been utilizing Tylenol and Toradol for pain control and is well tolerated. Patient does not have any nausea or vomiting at this time. He will continue with a clear liquid diet and follow-up with surgery next week. Review Of Systems: Constitutional: No fever, no chills, no night sweats. No weight change. No weakness, fatigue or lethargy. No daytime sleepiness. EENT: No headache. No blurred vision or double vision, no loss of vision. No loss of Hearing, no ringing in the ears, no dizziness. No nasal drainage or congestion. No epistaxis. No sore throat. Lungs: No shortness of breath, cough, no sputum production. No wheezing. Cardiovascular: No chest pain, no lower extremity edema. No palpitations. No paroxysmal nocturnal dyspnea. No orthopnea. No lightheadedness or dizziness. No syncopal episodes. Abdominal: Reports abdominal discomfort. No nausea, vomiting. no diarrhea. No constipation. No bloody or tarry stools. no loss of appetite. Genitourinary: No dysuria, increased frequency, urgency. No urinary retention. Musculoskeletal: No myalgias. No muscle weakness, no gait dysfunction, no frequent falls. No back pain. No neck pain. Integumentary: No wounds, no lesions. No rash or pruritus. No unusual bruising. No change in hair or nails. Neurologic: No aphasia. No facial droop. No change in mentation. No head injury. No headache. No paralysis. No paresthesia. Psychiatric: No depression. No anxiety. No mood swings. Endocrine: No abnormal blood sugars. No weight change. No excessive sweating or thirst. Physical exam: General Appearance: Alert, cooperative, no distress, appears stated age. Neck HEENT: Supple, no lymphadenopathy, no thyroid enlargement, no carotid bruits. Lungs: Clear to auscultation without crackles or wheezes no rhonchi, no deformity. Chest Wall: Chest wall normal expansion with deep inspiration no tenderness and no deformity was found on exam, no costochondral pain or discomfort. Heart: Regular rate and rhythm, S1, S2 normal, no murmur, rub or gallop. Back: Symmetric, no curvature, ROM normal, no CVA tenderness. Abdomen: Abdominal binder in place, dressing to the right upper quadrant, ANAHI drain intact with 30 ML's of serosanguineous drainage, Soft, tender, no rebound or rigidity, no hepatosplenomegaly. Positive bowel sounds Extremities: Extremities normal, atraumatic, no cyanosis or edema. Pulses: 2+ and symmetric. Skin: Skin color, texture, tugor normal, no rashes or lesions. Neurologic: Alert oriented x3 cranial nerves II through XII intact, no motor deficit, no abnormal balance or gait Assessment/plan: 1. Diverticulitis with robotic low anterior resection postop day2. Patient will given Cipro and Flagyl by mouth at home, Tylenol and Toradol for pain management. Patient will be discharged home today as per surgery orders. Continue to utilize incentive spirometer clear liquid diet . 2. Obesity 3. BPH. Flomax 0.4 mg by mouth 4. GI prophylaxis. Pepcid 20 mg IV twice a day, 5. DVT prophylaxis. Pneumatic compression sleeves Thank you for the consultation. We will continue to assist the patient's medical needs while the patient is in the hospital. Impression and plan of care have been directed as dictated by the signing physician. Elba Handy nurse practitioner acting as scribe for signing physician. Objective - Vital Signs Vital signs: Vital Signs Temp 98.1 F 04/28/20 23:10 Pulse 76 09/05/20 23:10 Resp 20 04/28/20 23:10 BP 146/87 04/28/20 23:10 Pulse Ox 95 04/28/20 23:10 Intake & Output 04/28/20 04/29/20 04/29/20 18:59 06:59 18:59 Intake Total 100 Output Total 1350 120 Balance -1350 -20 Intake: Oral 100 Output: Drainage 150 120 Right Abdomen 150 120 Urine 1200 Uretheral (Xie) 1200 Other: # Voids 1 - Labs CBC & Chem 7: 04/29/20 07:50 04/29/20 07:50 Labs: Abnormal Lab Results - Last 24 Hours (Table) 04/29/20 Range/Units 07:50 Hgb 12.4 L (13.0-17.5) gm/dL Neutrophils # 8.2 H (1.3-7.7) k/uL
[2020-04-29 09:40] VITALS: BP 115/72; PULSE 72; RESP 19; TEMP 98.6
--- NOTE | 2020-04-29 09:54 | P.DS ---
Providers Date of admission: 04/26/20 08:22 Expected date of discharge: 04/29/20 Attending physician: Rach Soto Consults: 04/27/20 21:32 Consult Physician Routine Consulting Provider: Matt Foss Reason/Comments: Medical management Do you want consulting provider notified?: Yes Primary care physician: Matt Foss - Discharge Diagnosis(es) (1) Diverticulitis Patient admitted for diverticulitis. Underwent robotic low anterior resection 2 days ago. Doing well postoperatively. He is having bowel movements this morning. He is tolerating his diet. He would like to go home. Pain is well- controlled. Incisions are clean and dry. Will plan discharge with outpatient follow-up one week from now. He has been cleared for discharge by medicine. Current Visit: Yes Status: Acute Plan - Discharge Summary Discharge Rx Participant: No New Discharge Prescriptions: New Ciprofloxacin HCl [Cipro] 500 mg PO Q12HR 7 Days #6 tab metroNIDAZOLE [Flagyl] 500 mg PO TID #21 tab Famotidine [Pepcid] 20 mg PO BID #30 tablet Ketorolac [Toradol] 10 mg PO Q6HR #20 tab No Action diphenhydrAMINE [Benadryl] 50 mg PO DAILY PRN PRN Reason: Itching Discharge Medication List diphenhydrAMINE [Benadryl] 50 mg PO DAILY PRN 04/24/20 [History] Ciprofloxacin HCl [Cipro] 500 mg PO Q12HR 7 Days #6 tab 04/29/20 [Rx] Famotidine [Pepcid] 20 mg PO BID #30 tablet 04/29/20 [Rx] Ketorolac [Toradol] 10 mg PO Q6HR #20 tab 04/29/20 [Rx] metroNIDAZOLE [Flagyl] 500 mg PO TID #21 tab 04/29/20 [Rx] Follow up Appointment(s)/Referral(s): Rach Soto MD [STAFF PHYSICIAN] - 1 Week
--- NOTE | 2020-05-11 13:16 | CDI ---
Documentation Clarification Form Date: 05/11/20 From: Temitope Nixon Phone: If you have a question about this query, please contact Rebeca Cardoza, Sex Therapist at [phone] between 8am and 5pm. Admit Date: 04/26/20 Discharge Date:04/29/20 Patient Name: Orestes Garcia Visit Number: [id number] ATTENTION: The Clinical Documentation Specialists (CDI) and [facility] Coding Staff appreciate your assistance in clarifying documentation. Please respond to the clarification below the line at the bottom and electronically sign. The CDI & [facility] Coding staff will review the response and follow-up if needed. Please note: Queries are made part of the Legal Health Record. If you have any questions, please contact the author of this message via ITS. Dear Dr. Soto The patient presented with the following: Diverticulitis, change in bowel habits. Documentation in the 04/27/20 procedure note states, sigmoid diverticulitis with large bowel obstruction with phlegmon, sgimoid mass and severe pelvic peritoneal adhesions. History/Risk Factors: Diverticulitis, abscess, large bowel obstruction Clinical Indicators: change in bowel habits: Vital Signs: T. 97.9, P. 78, R. 18, BP 143/79 Operative findings: Sigmoid diverticulitis with large bowel obstruction with phlegmon, severe pelvic adhesions Treatment: Laparoscopic sigmoid colectomy, extensive lysis of adhesions In your professional opinion, can you please clarify the cause of the large bowel obstruction? Diverticulitis with phlegmon Severe pelvic adhesions Other, please specify Unable to determine Diverticulitis with phlegmon 05/11/20 14:41 MTDD
== END 2020-04-29 14:04 | disposition home or self-care (01) | DRG 330 ==
LOC: ORWHC2ENDO 07:01 → 4SSUR 08:22
PROVIDERS: ADMIT Surgery Plastic and Reconstructive Surgery; ATTEND Surgery Plastic and Reconstructive Surgery
PROC: 0DBN8ZX Excision of Sigmoid Colon, Via Natural or Artificial Opening Endoscopic, Diagnostic (ICD-10-PCS; 2020-04-26)
PROC: 0DNW4ZZ Release Peritoneum, Percutaneous Endoscopic Approach (ICD-10-PCS; principal; 2020-04-27 13:20)
PROC: 0DTN4ZZ Resection of Sigmoid Colon, Percutaneous Endoscopic Approach (ICD-10-PCS; principal; 2020-04-27 13:20)
PROC: 8E0W4CZ Robotic Assisted Procedure of Trunk Region, Percutaneous Endoscopic Approach (ICD-10-PCS; principal; 2020-04-27 13:20)
PROC: 0DJD8ZZ Inspection of Lower Intestinal Tract, Via Natural or Artificial Opening Endoscopic (ICD-10-PCS; principal; 2020-04-27 13:20)
DX: K57.20 Diverticulitis of large intestine with perforation and abscess without bleeding (principal); K56.609 Unspecified intestinal obstruction, unspecified as to partial versus complete obstruction; K66.0 Peritoneal adhesions (postprocedural) (postinfection); N40.0 Benign prostatic hyperplasia without lower urinary tract symptoms; Z87.891 Personal history of nicotine dependence; Z68.36 Body mass index [BMI] 36.0-36.9, adult; Z81.8 Family history of other mental and behavioral disorders; Z82.49 Family history of ischemic heart disease and other diseases of the circulatory system; Z83.3 Family history of diabetes mellitus; Z82.3 Family history of stroke; Z84.1 Family history of disorders of kidney and ureter; E66.01 Morbid (severe) obesity due to excess calories; K21.9 Gastro-esophageal reflux disease without esophagitis
CPT/HCPCS: 45338; 64488; 74177; 80048; 80053; 82105; 82378; 82728; 83540; 83550; 83735; 84100; 85025; 88305; 88307; 93005; 94760

== ENCOUNTER → 2021-08-06 | Outpatient (CLI) | payer OTHER ==
[~2021-08-06] MED LIST: BAMLANIVIMAB (EUA) 700 MG, ETESEVIMAB (EUA) 1,400 MG in SODIUM CHLORIDE 0.9% 50 ML IVPB ONE; SODIUM CHLORIDE 0.9% 50 ML IVPB ONE; SODIUM CHLORIDE 0.9% 500 ML 500 ML in EMPTY BAG 1 BAG IV PRN
[2021-08-06 08:46] VITALS: RESP 16; TEMP 97.8
[2021-08-06 09:30] VITALS: BP 123/75; PULSE 70
== END ==
LOC: PROCWHC3 08:10
PROVIDERS: ATTEND Nurse Practitioner Family
DX: U07.1 COVID-19 (principal); E66.9 Obesity, unspecified; Z68.37 Body mass index [BMI] 37.0-37.9, adult; Z87.891 Personal history of nicotine dependence
CPT/HCPCS: 96360; J3490; M0245